=== PATIENT | male | born 1940 | race Caucasian/White ===

== ENCOUNTER 2023-10-19 21:53 | Emergency (ER) | payer MEDICARE, SELFPAY ==
[2023-10-19] VITALS (10 sets, daily range): BP systolic 92–120; BP diastolic 55–89; PULSE 69–95; RESP 11–20; TEMP 36.7; O2SAT 96–98; BMI 26.2
--- NOTE | 2023-10-19 22:55 | ECG_ITS ---
The [facility] Test Date: 2023-10-19 Pat Name: MAGDA ALEJO Department: Room: - Gender: Male [employer]: : 1940 Requested By: SUDHA CAMPBELL Order Number: [id number] Reading MD: STEVEN LUZ Measurements Intervals [place] Rate: 62 P: 70 GA: 178 QRS: 45 QRSD: 126 T: 21 QT: 428 QTc: 433 Interpretive Statements 1100 Sinus rhythm 1102 Sinus arrhythmia 3614 Cannot rule out inferior myocardial infarction, age undetermined [address] depression 4564 Twave abnormality, possible lateral ischemia 9150 abnormal ECG No previous ECG available for comparison Electronically Signed On 10-21-2023 19:55:07 EST by STEVEN LUZ
[2023-10-19] MEDS: 0.9 % SODIUM CHLORIDE 1,000 ML 1000 ML IV (23:08)
[2023-10-19] MEDS: ONDANSETRON PF 4 MG/2 ML VIAL IV (23:08)
[2023-10-19 23:16] LABS: Basophils Percent Auto 0.2 % (0.2-2.0); Hematocrit 49.5 % (42.0-54.0); Hemoglobin 16.1 g/dL (14.0-18.0); Immature Granulocytes Abs Auto 0.06 10^3/uL (0.00-0.03); Immature Granulocytes Pct Auto 0.4 % (0.0-0.5); Lymphocytes Absolute Auto 1.5 10^3/uL (1.2-3.8); Lymphocytes Percent Auto 10.1 % (20.5-60.0); Mean Corpuscular HGB Conc 32.5 g/dL (29.9-35.2); Mean Corpuscular Hemoglobin 30.3 pg (25.9-34.0); Mean Platelet Volume 11.7 fL (9.5-13.5); Monocytes Absolute Auto 0.7 10^3/uL (0.3-0.8); Monocytes Percent Auto 4.5 % (1.7-12.0); Neutrophils Absolute Auto 12.5 10^3/uL (1.4-6.5); Neutrophils Percent Auto 84.8 % (43.0-75.0); Platelet Count 185 10^3/uL (150-450); Red Blood Count 5.32 10^6/uL (4.70-6.10); Red Cell Distribution Width 13.1 % (11.0-15.0); White Blood Count 14.8 10^3/uL (4.0-11.0)
[2023-10-19 23:27] LABS: Ethanol <3 mg/dL
[2023-10-19 23:32] LABS: Alanine Aminotransferase 29 U/L (16-63); Alkaline Phosphatase 101 U/L (46-116); Anion Gap 12.9; Aspartate Amino Transferase 29 U/L (15-37); BUN Creatinine Ratio 16.3; Bilirubin Total 0.7 mg/dL (0.2-1.0); Calcium 10.3 mg/dL (8.5-10.1); Carbon Dioxide 29.7 mmol/L (21.0-32.0); Chloride 94 mmol/L (98-107); Estimated GFR (African America >60 (>=60); Estimated GFR (Non-African Ame >60 (>=60); Globulin 4.1 g/dL; Glucose 146 mg/dL (74-106); Potassium 3.6 mmol/L (3.5-5.1); Sodium 133 mmol/L (136-145); Total Protein 8.1 g/dL (6.4-8.2)
--- NOTE | 2023-10-19 23:35 | ED.NAVMDI1 ---
HPI - Nausea/Vomiting/Diarrhea General Chief complaint: Nausea/Vomiting/Diarrhea Stated complaint: general weakness Time Seen by Provider: 10/19/23 21:55 Source: patient Mode of arrival: Wheelchair Limitations: no limitations History of Present Illness HPI Narrative: 83-year-old male presents to the emergency department for a chief complaint of nausea and vomiting and feeling a bit weak. It started about 2:00 this afternoon, about nine hours ago. He vomited four times. No diarrhea or fever or hematemesis. No chest pain or cough or shortness of breath. Related Data Home Medications Medication Instructions Recorded Confirmed atorvastatin 80 mg tablet mg 10/19/23 brinzolamide 1 %-brimonidine 0.2 % drp ophthalmic (eye) 10/19/23 eye drops,suspension (Simbrinza) dorzolamide 2 % eye drops drp ophthalmic (eye) 10/19/23 dorzolamide 22.3 mg-timolol 6.8 ophthalmic (eye) 10/19/23 mg/mL eye drops latanoprost 0.005 % eye drops drp ophthalmic (eye) 10/19/23 verapamil 120 mg 24 hr mg PO 10/19/23 capsule,extended release Previous Rx's Medication Instructions Recorded ondansetron 4 mg disintegrating 4 mg PO Q6H PRN nausea and 10/20/23 tablet vomiting #20 tabs Allergies Allergy/AdvReac Type Severity Reaction Status Date / Time No Known Drug Allergies Allergy Verified 10/19/23 22:02 Review of Systems ROS Narrative A ten point review of systems is negative except as noted above. PFSH PFSH Social History Smoking status: Current every day smoker Exam Narrative Exam Narrative: Nurses note and vital signs reviewed and patient is not hypoxic. General: The patient appears well and in no apparent distress. Patient is resting comfortably on cart. Skin: Warm, dry, no pallor noted. There is no rash noted. Head: Normocephalic, atraumatic Eye: Normal conjunctiva, no drainage Ears, Nose, Mouth, and Throat: oral mucosa is moist. Nares patent. Cardiovascular: Regular Rate and Rhythm Respiratory: Patient is in no distress, no accessory muscle use, lungs are clear to auscultation, no wheezing, rales or rhonchi Back: non-tender GI: soft and nontender. Small umbilical hernia present which is easily reducible. Musculoskeletal: The patient has no evidence of calf tenderness, no pitting edema, symmetrical pulses noted bilaterally Neurological: A&O, normal speech Psychiatric: Cooperative Constitutional Vital Signs, click to edit/add: Last Vital Signs Temp 98.0 F 10/19/23 21:56 Pulse 95 H 10/19/23 23:40 Resp 20 10/19/23 23:40 BP 120/89 10/19/23 23:31 Pulse Ox 96 10/19/23 22:03 O2 Del Method Room Air 10/19/23 21:56 Course Vital Signs Vital signs: Vital Signs Temperature 98.0 F 10/19/23 21:56 Pulse Rate 69 10/19/23 21:56 Respiratory Rate 18 10/19/23 21:56 Blood Pressure 98/75 10/19/23 21:56 Pulse Oximetry 98 10/19/23 21:56 Oxygen Delivery Method Room Air 10/19/23 21:56 Temperature 98.0 F 10/19/23 21:56 Pulse Rate 95 H 10/19/23 23:40 Respiratory Rate 20 10/19/23 23:40 Blood Pressure 120/89 10/19/23 23:31 Pulse Oximetry 96 10/19/23 22:03 Oxygen Delivery Method Room Air 10/19/23 21:56 MDM - Nausea/Vomiting/Diarrhea MDM Narrative Medical decision making narrative: my clinical impression is that he has nausea and vomiting, likely from viral gastroenteritis. He was given IV fluids and Zofran and feels much better. He is tolerating by mouth liquids and wants to go home. Bloodwork nonspecific. Treatment diagnosis and follow-up were discussed with the patient. Differential Diagnosis Differential diagnosis: Likely food poisoning, gastroenteritis and dehydration Lab Data Attestation: I reviewed the patient's lab results. Labs: Lab Results 10/19/23 10/19/23 Range/Units 22:08 23:03 WBC 14.8 H (4.0-11.0) 10^3/uL RBC 5.32 (4.70-6.10) 10^6/uL Hgb 16.1 (14.0-18.0) g/dL Hct 49.5 (42.0-54.0) % MCV 93.0 (80.0-94.0) fL MCH 30.3 (25.9-34.0) pg MCHC 32.5 (29.9-35.2) g/dL RDW 13.1 (11.0-15.0) % Plt Count 185 (150-450) 10^3/uL MPV 11.7 (9.5-13.5) fL Neut % (Auto) 84.8 H (43.0-75.0) % Lymph % (Auto) 10.1 L (20.5-60.0) % [place] % (Auto) 4.5 (1.7-12.0) % Eos % (Auto) 0.0 L (0.9-7.0) % Baso % (Auto) 0.2 (0.2-2.0) % Neut # (Auto) 12.5 H (1.4-6.5) 10^3/uL Lymph # (Auto) 1.5 (1.2-3.8) 10^3/uL [place] # (Auto) 0.7 (0.3-0.8) 10^3/uL Eos # (Auto) 0.0 (0.0-0.7) 10^3/uL Baso # (Auto) 0.0 (0.0-0.1) 10^3/uL Abs Immat Gran (auto) 0.06 H (0.00-0.03) 10^3/uL Imm/Tot Granulo (auto) 0.4 (0.0-0.5) % Sodium 133 L (136-145) mmol/L Potassium 3.6 (3.5-5.1) mmol/L Chloride 94 L (98-107) mmol/L Carbon Dioxide 29.7 (21.0-32.0) mmol/L Anion Gap 12.9 BUN 17.0 (7.0-18.0) mg/dL Creatinine 1.04 (0.70-1.30) mg/dL Est GFR ( Amer) >60 (>=60) Est GFR (Non-Af Amer) >60 (>=60) BUN/Creatinine Ratio 16.3 Glucose 146 H (74-106) mg/dL Calcium 10.3 H (8.5-10.1) mg/dL Total Bilirubin 0.7 (0.2-1.0) mg/dL AST 29 (15-37) U/L ALT 29 (16-63) U/L Alkaline Phosphatase 101 (46-116) U/L Total Protein 8.1 (6.4-8.2) g/dL Albumin 4.0 (3.4-5.0) g/dL Globulin 4.1 g/dL Albumin/Globulin Ratio 1.0 Ethanol Quant <3 mg/dL ECG Data Attestation: I personally reviewed and interpreted this ECG as follows: (EKG on my interpretation shows sinus rhythm without acute change in a rate of 62.) Discharge Plan Discharge Chief Complaint: Nausea/Vomiting/Diarrhea Clinical Impression: Nausea & vomiting Patient Disposition: Home, Self-Care Time of Disposition Decision: 00:37 Condition: Good Mode of Transportation: Private Vehicle Prescriptions / Home Meds: New ondansetron 4 mg tablet,disintegrating 4 mg PO Q6H PRN (Reason: nausea and vomiting) Qty: 20 0RF No Action latanoprost 0.005 % drops OPHTHALMIC (EYE) atorvastatin 80 mg tablet dorzolamide-timolol 22.3-6.8 mg/mL drops OPHTHALMIC (EYE) dorzolamide 2 % drops OPHTHALMIC (EYE) verapamil 120 mg capsule,ext rel. pellets 24 hr PO Simbrinza 1-0.2 % drops,suspension OPHTHALMIC (EYE) Instructions: Acute Nausea and Vomiting (ED) Stand Alone Forms: Portal Instructions Referrals: SUDHA CAMPBELL [Primary Care Provider] - 1 week
[2023-10-20] VITALS (7 sets, daily range): BP systolic 84–115; BP diastolic 62–84; PULSE 83–95; RESP 14–19
== END 2023-10-20 01:09 | disposition home or self-care (01) ==
PROVIDERS: Emergency Provider Emergency Medicine; PCP Family Medicine
DX: R11.2 Nausea with vomiting, unspecified (principal); Z79.899 Other long term (current) drug therapy; F17.210 Nicotine dependence, cigarettes, uncomplicated
CPT/HCPCS: 36415; 80053; 80320; 85025; 93005; 96361; 96374; 99285

== ENCOUNTER 2023-10-21 14:00 | Inpatient (IN) | payer MEDICARE, SELFPAY ==
[2023-10-21] VITALS (17 sets, daily range): BP systolic 84–118; BP diastolic 50–87; PULSE 75–88; RESP 13–20; TEMP 36.7–36.9; O2SAT 81–100; BMI 26.5; BMI 24.0
--- NOTE | 2023-10-21 | CONS_ITS ---
CONSULTATION DATE: ??10/21/2023 CHIEF COMPLAINT:? Abdominal pain, nausea, vomiting. HISTORY OF PRESENT ILLNESS:? Patient is an 83-year-old male with history of COPD, hypertension, hyperlipidemia, peripheral vascular disease, who presented to the emergency room with mid abdominal pain as well as nausea and vomiting.? He reports that this began on Sunday.? He was unable to keep anything down since Sunday night.? He does have a history of significant coughing episodes through his COPD.? He presented to the emergency room Sunday, two days ago, and was diagnosed with gastroenteritis and sent back home.? His symptoms worsened and persisted, I guess, and he represented today.? This time, he was found to have evidence of dehydration.? CT scan of the abdomen and pelvis was performed which revealed an incarcerated loop of small bowel within a small umbilical hernia with a small bowel obstruction.? He was also found to have some hypoxia and mild hypotension.? He underwent CTA of the chest that was negative for pulmonary embolus.? He was also being evaluated for infections.? Patient denies any history of bowel obstructions or incarcerated hernias.? He does report that he noted the hernia about six months ago.? It has been relatively asymptomatic.? He denies any blood thinners.? Does take a baby aspirin daily.? No nonsteroidal anti-inflammatory drugs.? He denies any previous abdominal surgeries.? He does smoke less than a pack a day, which he has for many years.? ALLERGIES:? Patient has no known drug allergies.?? MEDICATIONS:? Home medications include a baby aspirin, atorvastatin, multiple eye drops, as well as verapamil daily. PAST SURGICAL HISTORY:? Significant for carotid endarterectomies. SOCIAL HISTORY:? Patient is a , does smoke less than a pack a day, reports occasional alcohol use, no illicit drug us. FAMILY HISTORY:? Noncontributory. REVIEW OF SYSTEMS:? Ten system review of systems is negative for recent weight loss or weight gain.? Denies increased fatigue or light-headedness.? Has had no earache or tinnitus.? No sinus congestion.? No sore throat or hoarseness.? No chest pain, palpitations or syncope.? Does have a chronic cough and shortness of breath.? No hemoptysis.? Has had the abdominal pain, nausea, vomiting since Sunday.? No diarrhea, constipation or decreased caliber of the stool.? No melena, hematochezia or bright red blood per rectum.? No dysuria, frequency, urgency or hematuria.? No headaches, seizures or tremors.? No easy bruising or bleeding.? No heat or cold intolerance.? No polydipsia, polyphagia or polyuria. PHYSICAL EXAM:? VITAL SIGNS:? Blood pressure is 90s/60s.? Heart rate is 76 and regular.? Respiratory rate is 18.? O2 saturation is 97% on nasal cannula O2.? GENERAL:? Patient is an elderly male, currently in no acute distress.? He is on oxygen with an O2 saturation in the mid 90s. HEENT:? Normocephalic, atraumatic.? Sclerae anicteric.? Conjunctiva are not injected.? Oral mucosa is slightly dry. NECK:? Supple.? No adenopathy, thyromegaly or JVD. LUNGS:? Reveal expiratory wheezes, decreased breath sounds at the bases.? CARDIAC EXAM:? Regular rhythm and rate without appreciable murmurs, rubs or gallops. ABDOMEN:? Soft.? There are hypoactive bowel sounds.? It is non-distended.? There is tenderness in the umbilicus with slight ecchymotic change to the umbilicus with small umbilical bulge on palpation.? This is tender.? It was able to be reduced with moderate pressure and the defect was noted to be less than 1 cm.? Abdomen is otherwise soft, non-tender, non-distended, without mass, hepatosplenomegaly or other hernias noted. SKIN:? Warm and dry without lesions, rashes or ulcers. NEURO EXAM:? Non-focal.? Non-lateralizing.? Patient is awake, alert, oriented with appropriate affect. LABORATORY VALUES:? Reveal an elevated white blood cell count of 13,400.? H&H is 16.3 and 49.9 with a normal platelet count.? Coagulation factors are normal.? D- dimer was slightly elevated.? Potassium is low at 3.2.? Carbon dioxide is elevated at 35. BUN is 29 with a creatinine of 1.44.? Glucose is elevated at 121.? Liver function tests are normal.? Urinalysis revealed concentrated urine. IMAGING:? CT scan was personally reviewed. ASSESSMENT:? An 83-year-old male with COPD, with a four day history of nausea, vomiting, abdominal pain, likely due to incarcerated umbilical hernia.? This was reduced and he has a less than 1 cm defect.? I would recommend placing an abdominal binder on the patient.? Continue with hydration.? Workup for possible other sources of infection, although I believe, most likely all his symptoms are due to nausea, vomiting, dehydration and his underlying COPD.? Once he is medically stable, the hernia should be repaired during this admission to prevent further episodes of incarceration. ?Likely he could benefit from just a primary repair with such a small defect.? I would begin him on a clear liquid diet and gradually advance to a regular diet as tolerated.? I will follow him with you during his hospital course. CC:? Ben Chaidez D.O. PEDRO LUIS
--- NOTE | 2023-10-21 14:58 | ECG_ITS ---
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
--- NOTE | 2023-10-21 14:59 | CT_ITS ---
[address] [address] Patient Name: MAGDA ALEJO MRN: [id number] date: 1940 Sex: M Assigned Patient Location: ER Current Patient Location: ER Accession/Order Number: [id number] Exam Date: 10/21/2023 15:23 Report Date: 10/21/2023 15:58 At the request of: VERENICE DILLON Procedure: CT abdomen pelvis wo con CT ABDOMEN/PELVIS WITHOUT IV CONTRAST. INDICATION: abd pain and sbo COMPARISON: There are no other studies available for comparison. TECHNIQUE: Contiguous axial images were obtained from the lung bases to the pelvic floor without intravenous or oral contrast. Coronal and sagittal reformations are provided. FINDINGS: LOWER LUNGS: Clear. LIVER/BILIARY TREE: No discrete lesion. No intrahepatic ductal dilatation. GALLBLADDER: No significant gallbladder wall thickening. No radiopaque stone. CBD: Normal CBD. SPLEEN: Normal in size. PANCREAS: No appreciable peripancreatic fluid. No pancreatic ductal dilatation. No discrete lesion. ADRENALS: Normal. KIDNEYS: No hydronephrosis. No radiopaque calculus. STOMACH AND BOWEL: There are dilated small bowel loops measuring up to 3.8 cm.. . There is transitioning at the umbilical hernia which contains a small bowel loop. No evidence of perforation. APPENDIX: Not visualized. PERITONEAL CAVITY: No fluid. No fat stranding. ABDOMINAL WALL: There is a small umbilical hernia containing a small bowel loop resulting in bowel obstruction. The hernia sac measures approximately 2.7 x 3.1 cm. The hernia neck measures approximately 1 cm. LYMPH NODES: No mesenteric or retroperitoneal lymphadenopathy by CT criteria. ABDOMINAL AORTA: There is a 3.1 cm infrarenal abdominal aortic aneurysm.. PELVIS: No acute abnormality. MUSCULOSKELETAL: No acute osseous abnormality. CT/CT abdomen pelvis wo con IMPRESSION: 1. Small umbilical hernia containing a small bowel loop resulting in a small bowel obstruction. No evidence of perforation. Correlate for incarcerated umbilical hernia. 2. 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 Electronically authenticated by: ANTONIO MENDOZA Date: 10/21/2023 15:58
--- NOTE | 2023-10-21 14:59 | XR_ITS ---
The [place] [id number] Patient Name: MAGDA ALEJO MRN: [id number] date: 1940 Sex: M Assigned Patient Location: ER Current Patient Location: ER Accession/Order Number: [id number] Exam Date: 10/21/2023 15:20 Report Date: 10/21/2023 15:59 At the request of: VERENICE DILLON Procedure: XR chest 1V EXAM: XR chest 1V , 10/21/2023 HISTORY: sob COMPARISON: None. TECHNIQUE: Portable AP upright x-ray of the chest. FINDINGS: Cardiac silhouette within normal limits. Atherosclerotic calcification of the thoracic aorta. Minimal basilar atelectasis, more so on the left side. No hilar or mediastinal enlargement. No focal consolidation or pulmonary edema. No acute osseous findings. XR/XR chest 1V IMPRESSION: No acute cardiopulmonary findings. Electronically authenticated by: CHANO HUFF Date: 10/21/2023 15:59
[2023-10-21] MEDS: 0.9 % SODIUM CHLORIDE 1,000 ML 1000 ML IV (15:07)
[2023-10-21] MEDS: FAMOTIDINE/PF 20 MG/2 ML VIAL IV (15:07)
[2023-10-21 15:23] LABS: Basophils Percent Auto 0.1 % (0.2-2.0); Eosinophils Percent Auto 0.1 % (0.9-7.0); Hematocrit 49.9 % (42.0-54.0); Hemoglobin 16.3 g/dL (14.0-18.0); Immature Granulocytes Abs Auto 0.05 10^3/uL (0.00-0.03); Immature Granulocytes Pct Auto 0.4 % (0.0-0.5); Lymphocytes Absolute Auto 1.7 10^3/uL (1.2-3.8); Lymphocytes Percent Auto 12.6 % (20.5-60.0); Mean Corpuscular HGB Conc 32.7 g/dL (29.9-35.2); Mean Corpuscular Hemoglobin 30.3 pg (25.9-34.0); Mean Corpuscular Volume 92.8 fL (80.0-94.0); Mean Platelet Volume 11.4 fL (9.5-13.5); Monocytes Absolute Auto 1.2 10^3/uL (0.3-0.8); Monocytes Percent Auto 8.8 % (1.7-12.0); Neutrophils Absolute Auto 10.4 10^3/uL (1.4-6.5); Platelet Count 193 10^3/uL (150-450); Red Blood Count 5.38 10^6/uL (4.70-6.10); Red Cell Distribution Width 13.2 % (11.0-15.0); White Blood Count 13.4 10^3/uL (4.0-11.0)
[2023-10-21 15:32] LABS: Magnesium 2.1 mg/dL (1.8-2.4)
[2023-10-21 15:36] LABS: INR 1.02; Prothrombin Time 10.8 sec (9.0-11.6)
[2023-10-21 15:41] LABS: Alanine Aminotransferase 29 U/L (16-63); Alkaline Phosphatase 98 U/L (46-116); Anion Gap 13.1; Aspartate Amino Transferase 27 U/L (15-37); BUN Creatinine Ratio 20.1; Bilirubin Total 0.7 mg/dL (0.2-1.0); Calcium 10.8 mg/dL (8.5-10.1); Carbon Dioxide 35.1 mmol/L (21.0-32.0); Chloride 91 mmol/L (98-107); Estimated GFR (African America 57 (>=60); Estimated GFR (Non-African Ame 47 (>=60); Globulin 4.2 g/dL; Glucose 121 mg/dL (74-106); Lactate/Lactic Acid 1.7 mmol/L (0.4-2.0); Potassium 3.2 mmol/L (3.5-5.1); Sodium 136 mmol/L (136-145); Total Protein 8.2 g/dL (6.4-8.2); Troponin I High Sensitivity 60.6 pg/mL (4.0-76.1)
[2023-10-21 15:49] LABS: Bilirubin Urine SMALL (NEGATIVE); Blood Urine NEGATIVE (NEGATIVE); Clarity Urine CLEAR (CLEAR); Color Urine YELLOW (YELLOW); Glucose Urine UA NEGATIVE (NEGATIVE); Ketones Urine NEGATIVE (NEGATIVE); Leukocyte Esterase Urine NEGATIVE (NEGATIVE); Nitrite Urine NEGATIVE (NEGATIVE); Protein Urine 30 mg/dL (NEG/TRACE); Specific Gravity Urine >=1.030 (1.005-1.025); Urine Microscopic Indicated YES; pH Urine 5.5 (5.0-9.0)
[2023-10-21 15:59] LABS: D Dimer 2.03 mg/L FEU (<=0.59)
[2023-10-21 16:01] LABS: RBC Urine 0-2 #/HPF (0-2); WBC Urine NONE SEEN #/HPF (NONE SEEN)
[2023-10-21 16:02] LABS: Bacteria Urine TRACE #/HPF (NONE SEEN); Cast Seen? SEEN #/LPF (NONE SEEN); Crystals Seen? None Seen #/HPF (None Seen); Hyaline Casts Urine MODERATE; Mucus Urine SMALL (NONE SEEN); Squamous Epithelial Cell Urine FEW #/LPF (NONE/RARE); Urine Culture Indicated NO
--- NOTE | 2023-10-21 17:26 | CT_ITS ---
The [address] [address] Patient Name: MAGDA ALEJO MRN: [id number] date: 1940 Sex: M Assigned Patient Location: ER Current Patient Location: ER Accession/Order Number: [id number] Exam Date: 10/21/2023 17:18 Report Date: 10/21/2023 18:25 At the request of: VERENICE DILLON Procedure: CT angio chest EXAMINATION: CT angio chest, 10/21/2023 2:18 PM PST HISTORY: sob elevated ddimer COMPARISON: None. TECHNIQUE: CT angiogram of the chest (per pulmonary embolus protocol) with contrast. Coronal and sagittal 3D MIP rendered images were created. ALARA Utilization: Dose reduction technique was used including one or more of the following: automated exposure control, iterative reconstruction technique, adjustment of mA and kV according patient size and/or scan done according to ALARA (exposure dose as low as reasonably achievable). FINDINGS: CTA: No pulmonary artery filling defects/emboli. Non dilated pulmonary trunk. LUNGS: Peribronchial thickening and scattered distal mucus plugging. Mild subpleural reticulation. AIRWAYS: Central airways are patent. PLEURA: As above. No pleural effusion. MEDIASTINUM AND ELISE: No significant finding. HEART AND PERICARDIUM: No significant finding. VESSELS: Heavy coronary calcification. Additional findings above. CHEST WALL: No significant finding. NECK BASE: No significant finding. UPPER ABDOMEN: Distended stomach and small bowel loops, partially visualized. Small bowel obstruction secondary to umbilical hernia noted on CT abdomen. BONES: No significant finding. CT/CT angio chest IMPRESSION: No evidence of pulmonary emboli. Peribronchial thickening and scattered distal airway mucus plugging. Electronically authenticated by: DAMIAN SHI Date: 10/21/2023 18:25
--- NOTE | 2023-10-21 17:49 | ED_ITS ---
HPI - Abdominal Pain General Chief Complaint: Abdominal Pain Stated Complaint: nausea/ general weakness Time Seen by Provider: 10/21/23 14:58 Source: patient and family Mode of arrival: walk-in Limitations: no limitations History of Present Illness HPI narrative: Patient is coming to the ER after he was evaluated almost few days ago for possibly a viral infection with nausea vomiting and not tolerating any p.o. for the last 3 days in addition to his last bowel movement being 4 days ago When asked about abdominal pain the patient mentioned that mostly right upper quadrant he also mentioned that he have a history of umbilical hernia that is always tender The patient mentioned that the hernia is not bulging more than usual It was also noted that the patient is weak tired and coughing with difficulty breathing upon arrival Related Data Home Medications Medication Instructions Recorded Confirmed atorvastatin 80 mg tablet 80 mg PO DAILY 10/19/23 10/21/23 brinzolamide 1 %-brimonidine 0.2 % 1 drp ophthalmic (eye) Q12H 10/19/23 10/21/23 eye drops,suspension (Simbrinza) dorzolamide 2 % eye drops 1 drp ophthalmic (eye) Q12H 10/19/23 10/21/23 dorzolamide 22.3 mg-timolol 6.8 1 drp ophthalmic (eye) Q12H 10/19/23 10/21/23 mg/mL eye drops latanoprost 0.005 % eye drops 1 drp ophthalmic (eye) Q12H 10/19/23 10/21/23 verapamil 120 mg 24 hr 120 mg PO DAILY 10/19/23 10/21/23 capsule,extended release aspirin 81 mg chewable tablet 81 mg PO DAILY 10/21/23 10/21/23 (Jose Chewable Low Dose Aspirin) Previous Rx's Medication Instructions Recorded ondansetron 4 mg disintegrating 4 mg PO Q6H PRN nausea and 10/20/23 tablet vomiting #20 tabs Allergies Allergy/AdvReac Type Severity Reaction Status Date / Time No Known Drug Allergies Allergy Verified 10/19/23 22:02 Review of Systems ROS Status of ROS 10 or more systems reviewed and unremarkable except as noted in history and below PFSH PFSH Social History Smoking status: Current every day smoker Exam Narrative Exam Narrative: Nurses notes and vital signs reviewed and patient is not hypoxic. General: Well-appearing and in no apparent distress. Skin: Warm, dry, no pallor noted. No rash. Head: Normocephalic, atraumatic. Neck: Supple, non-tender. 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 Oral mucosa is moist, no posterior oropharynx erythema, uvula is mid-line Cardiovascular: Regular Rate and Rhythm without murmur, gallop or rub. Respiratory: Rhonchi heard in both lung witt Lungs are clear to auscultation, no wheezing, rales or rhonchi Chest Wall: no tenderness Back: No midline thoracic or lumbar vertebral tenderness. No CVA tenderness Musculoskeletal: normal ROM, no calf or popliteal tenderness, no lower extremity edema/swelling GI: Abdomen is soft, mild tenderness upon palpation of the umbilical hernia that is almost 2 x 3 cm oval in shape with 1 cm thickness and upon putting the patient in the room breathing and pushing on the hernia it was soft No tenderness to palpation. No rebound, guarding, or rigidity noted. Neurological: A&O x4. No cranial nerve dysfunction observed. No truncal ataxia. Moves all extremities. Sensation intact. Psychiatric: Cooperative and interactive. Normal mood and affect. Constitutional Vital Signs, click to edit/add: Last Vital Signs Temp 98.4 F 10/21/23 14:11 Pulse 76 10/21/23 15:24 Resp 20 10/21/23 17:10 BP 91/66 10/21/23 15:24 Pulse Ox 97 10/21/23 17:10 O2 Del Method Room Air 10/21/23 15:46 O2 Flow Rate 4 10/21/23 15:24 Course Vital Signs Vital signs: Vital Signs Temperature 98.4 F 10/21/23 14:11 Pulse Rate 82 10/21/23 14:11 Respiratory Rate 18 10/21/23 14:11 Blood Pressure 84/50 L 10/21/23 14:11 Pulse Oximetry 93 L 10/21/23 14:11 Oxygen Delivery Method Room Air 10/21/23 14:11 Temperature 98.4 F 10/21/23 14:11 Pulse Rate 76 10/21/23 15:24 Respiratory Rate 20 10/21/23 17:10 Blood Pressure 91/66 10/21/23 15:24 Pulse Oximetry 97 10/21/23 17:10 Oxygen Delivery Method Room Air 10/21/23 15:46 Oxygen Delivery Flow Rate 4 10/21/23 15:24 MDM - Abdominal Pain MDM Narrative Medical decision making narrative: The patient EKG upon presentation showing sinus rhythm with a heart rate of [address] elevation or depression but there is chronic T wave inversion seen in other EKGs CBC shows a mild leukocytosis Chemistry shows mild acute kidney injury upon presentation it was noted that the patient was hypotensive in addition to short of breath with a pulse ox 85% on room air and the systolic pressure was around 80 upon arrival The patient was started IV fluid 1 L after which she had some response and blood pressure is lactic acid was 1.7 CAT scan of the abdomen shows possible small bowel obstruction with a hernia at the transition point although the patient as I mentioned above have a no significant bulge of the hernia and upon pushing on the hernia it was soft although it still very indurated The patient case about the hernia discussed with Dr. Venegas and the the patient right now is pain-free and have no nausea or vomiting he will be admitted after cover him with antibiotic for that issue The patient CAT scan of the chest showed no PE the patient to be admitted for management of his hernia Dr. Venegas presented to the bedside and he reduce the hernia but he will take the patient mostly for surgery if needed The patient case discussed with Dr. Vanessa Burch and she agreed with above-mentioned plan Lab Data Labs: Lab Results 10/21/23 10/21/23 10/21/23 Range/Units 13:10 15:10 15:42 WBC 13.4 H (4.0-11.0) 10^3/uL RBC 5.38 (4.70-6.10) 10^6/uL Hgb 16.3 (14.0-18.0) g/dL Hct 49.9 (42.0-54.0) % MCV 92.8 (80.0-94.0) fL MCH 30.3 (25.9-34.0) pg MCHC 32.7 (29.9-35.2) g/dL RDW 13.2 (11.0-15.0) % Plt Count 193 (150-450) 10^3/uL MPV 11.4 (9.5-13.5) fL Neut % (Auto) 78.0 H (43.0-75.0) % Lymph % (Auto) 12.6 L (20.5-60.0) % [place] % (Auto) 8.8 (1.7-12.0) % Eos % (Auto) 0.1 L (0.9-7.0) % Baso % (Auto) 0.1 L (0.2-2.0) % Neut # (Auto) 10.4 H (1.4-6.5) 10^3/uL Lymph # (Auto) 1.7 (1.2-3.8) 10^3/uL [place] # (Auto) 1.2 H (0.3-0.8) 10^3/uL Eos # (Auto) 0.0 (0.0-0.7) 10^3/uL Baso # (Auto) 0.0 (0.0-0.1) 10^3/uL Abs Immat Gran (auto) 0.05 H (0.00-0.03) 10^3/uL Imm/Tot Granulo (auto) 0.4 (0.0-0.5) % PT 10.8 (9.0-11.6) sec INR 1.02 D-Dimer 2.03 H* (<=0.59) mg/L FEU Sodium 136 (136-145) mmol/L Potassium 3.2 L (3.5-5.1) mmol/L Chloride 91 L (98-107) mmol/L Carbon Dioxide 35.1 H (21.0-32.0) mmol/L Anion Gap 13.1 BUN 29.0 H (7.0-18.0) mg/dL Creatinine 1.44 H (0.70-1.30) mg/dL Est GFR ( Amer) 57 L (>=60) Est GFR (Non-Af Amer) 47 L (>=60) BUN/Creatinine Ratio 20.1 Glucose 121 H (74-106) mg/dL Lactate 1.7 (0.4-2.0) mmol/L Calcium 10.8 H (8.5-10.1) mg/dL Magnesium 2.1 (1.8-2.4) mg/dL Total Bilirubin 0.7 (0.2-1.0) mg/dL AST 27 (15-37) U/L ALT 29 (16-63) U/L Alkaline Phosphatase 98 (46-116) U/L Troponin I High Sens 60.6 (4.0-76.1) pg/mL Total Protein 8.2 (6.4-8.2) g/dL Albumin 4.0 (3.4-5.0) g/dL Globulin 4.2 g/dL Albumin/Globulin Ratio 1.0 Urine Color Yellow (YELLOW) Urine Clarity Clear (CLEAR) Urine pH 5.5 (5.0-9.0) Ur Specific [place] >=1.030 A (1.005-1.025) Urine Protein 30 A (NEG/TRACE) mg/dL Urine Glucose (UA) Negative (NEGATIVE) mg/dL Urine Ketones Negative (NEGATIVE) mg/dL Urine Occult Blood Negative (NEGATIVE) Urine Nitrite Negative (NEGATIVE) Urine Bilirubin Small A (NEGATIVE) Urine Urobilinogen 1.0 (0.2-1.0) EU/dL Ur Leukocyte Esterase Negative (NEGATIVE) Urine RBC 0-2 (0-2) #/HPF Urine WBC None seen (NONE SEEN) #/HPF Ur Squamous Epith Cells Few A (NONE/RARE) #/LPF Urine Crystals None seen (None Seen) #/HPF Urine Bacteria Trace A (NONE SEEN) #/HPF Urine Casts Seen A (NONE SEEN) #/LPF Hyaline Casts Moderate Urine Mucus Small A (NONE SEEN) Ur Culture Indicated? No Discharge Plan Discharge Chief Complaint: Abdominal Pain Clinical Impression: Hernia, umbilical, Acute exacerbation of chronic obstructive pulmonary disease Patient Disposition: Admitted As Inpatient Time of Disposition Decision: 19:01
[2023-10-21] MEDS: CEFAZOLIN SODIUM/DEXTROSE,ISO 1 GM/50 ML IV.SOLN IV (18:47)
--- NOTE | 2023-10-21 18:58 | P.GSCN_ITS ---
History of Present Illness Consult details Consult date: 10/21/23 Narrative: patient examined/ chart and abd ct scan images reviewed/consult dictated; 83 yo male with COPD with 4 day h/o N/V mid abd pain, found to have incarcerated umbilical hernia with sbo; hernia reduced by me in the ED; recommend admission, hydration, medical optimization, and proceeding with primary repair of hernia during this admission to prevent recurrence; recommend abd binder now to minimize recurrence; will follow. PFSH PFSH Social History Smoking status: Current every day smoker Meds Home Medications and Allergies Home Medications Medication Instructions Recorded Confirmed Type atorvastatin 80 mg tablet 80 mg PO DAILY 10/19/23 10/21/23 History brinzolamide 1 %-brimonidine 0.2 % 1 drp ophthalmic (eye) Q12H 10/19/23 10/21/23 History eye drops,suspension (Simbrinza) dorzolamide 2 % eye drops 1 drp ophthalmic (eye) Q12H 10/19/23 10/21/23 History dorzolamide 22.3 mg-timolol 6.8 1 drp ophthalmic (eye) Q12H 10/19/23 10/21/23 History mg/mL eye drops latanoprost 0.005 % eye drops 1 drp ophthalmic (eye) Q12H 10/19/23 10/21/23 History verapamil 120 mg 24 hr 120 mg PO DAILY 10/19/23 10/21/23 History capsule,extended release ondansetron 4 mg disintegrating 4 mg PO Q6H PRN nausea and 10/20/23 10/21/23 Rx tablet vomiting #20 tabs aspirin 81 mg chewable tablet 81 mg PO DAILY 10/21/23 10/21/23 History (Jose Chewable Low Dose Aspirin) Allergies Allergy/AdvReac Type Severity Reaction Status Date / Time No Known Drug Allergies Allergy Verified 10/19/23 22:02 Exam Constitutional Vital Signs, click to edit/add: Last Vital Signs Temp 98.4 F 10/21/23 14:11 Pulse 76 10/21/23 15:24 Resp 20 10/21/23 17:10 BP 91/66 10/21/23 15:24 Pulse Ox 97 10/21/23 17:10 O2 Del Method Room Air 10/21/23 15:46 O2 Flow Rate 4 10/21/23 15:24 Results Labs Labs: Abnormal lab results 10/21/23 10/21/23 10/21/23 Range/Units 13:10 15:10 15:42 WBC 13.4 H (4.0-11.0) 10^3/uL Neut % (Auto) 78.0 H (43.0-75.0) % Lymph % (Auto) 12.6 L (20.5-60.0) % Eos % (Auto) 0.1 L (0.9-7.0) % Baso % (Auto) 0.1 L (0.2-2.0) % Neut # (Auto) 10.4 H (1.4-6.5) 10^3/uL [place] # (Auto) 1.2 H (0.3-0.8) 10^3/uL Abs Immat Gran (auto) 0.05 H (0.00-0.03) 10^3/uL D-Dimer 2.03 H* (<=0.59) mg/L FEU Potassium 3.2 L (3.5-5.1) mmol/L Chloride 91 L (98-107) mmol/L Carbon Dioxide 35.1 H (21.0-32.0) mmol/L BUN 29.0 H (7.0-18.0) mg/dL Creatinine 1.44 H (0.70-1.30) mg/dL Est GFR ( Amer) 57 L (>=60) Est GFR (Non-Af Amer) 47 L (>=60) Glucose 121 H (74-106) mg/dL Calcium 10.8 H (8.5-10.1) mg/dL Ur Specific [place] >=1.030 A (1.005-1.025) Urine Protein 30 A (NEG/TRACE) mg/dL Urine Bilirubin Small A (NEGATIVE) Ur Squamous Epith Cells Few A (NONE/RARE) #/LPF Urine Bacteria Trace A (NONE SEEN) #/HPF Urine Casts Seen A (NONE SEEN) #/LPF Urine Mucus Small A (NONE SEEN) Diabetes panel 10/21/23 Range/Units 15:10 Sodium 136 (136-145) mmol/L Potassium 3.2 L (3.5-5.1) mmol/L Chloride 91 L (98-107) mmol/L Carbon Dioxide 35.1 H (21.0-32.0) mmol/L BUN 29.0 H (7.0-18.0) mg/dL Creatinine 1.44 H (0.70-1.30) mg/dL Glucose 121 H (74-106) mg/dL Calcium 10.8 H (8.5-10.1) mg/dL AST 27 (15-37) U/L ALT 29 (16-63) U/L Alkaline Phosphatase 98 (46-116) U/L Total Protein 8.2 (6.4-8.2) g/dL Albumin 4.0 (3.4-5.0) g/dL Calcium panel 10/21/23 Range/Units 15:10 Calcium 10.8 H (8.5-10.1) mg/dL Albumin 4.0 (3.4-5.0) g/dL Pituitary panel 10/21/23 Range/Units 15:10 Sodium 136 (136-145) mmol/L Potassium 3.2 L (3.5-5.1) mmol/L Chloride 91 L (98-107) mmol/L Carbon Dioxide 35.1 H (21.0-32.0) mmol/L BUN 29.0 H (7.0-18.0) mg/dL Creatinine 1.44 H (0.70-1.30) mg/dL Glucose 121 H (74-106) mg/dL Calcium 10.8 H (8.5-10.1) mg/dL Adrenal panel 10/21/23 Range/Units 15:10 Sodium 136 (136-145) mmol/L Potassium 3.2 L (3.5-5.1) mmol/L Chloride 91 L (98-107) mmol/L Carbon Dioxide 35.1 H (21.0-32.0) mmol/L BUN 29.0 H (7.0-18.0) mg/dL Creatinine 1.44 H (0.70-1.30) mg/dL Glucose 121 H (74-106) mg/dL Calcium 10.8 H (8.5-10.1) mg/dL Total Bilirubin 0.7 (0.2-1.0) mg/dL AST 27 (15-37) U/L ALT 29 (16-63) U/L Alkaline Phosphatase 98 (46-116) U/L Total Protein 8.2 (6.4-8.2) g/dL Albumin 4.0 (3.4-5.0) g/dL All other labs normal.
--- NOTE | 2023-10-21 19:35 | PC.NURSE ---
Abdominal binder placed. Aware of transfer to floor.
[2023-10-22] VITALS (10 sets, daily range): BP systolic 90–122; BP diastolic 60–81; PULSE 65–82; RESP 20–22; TEMP 36.6–36.7; O2SAT 85–94
--- NOTE | 2023-10-22 01:55 | W.PM.TELEPN ---
Progress Note: Subjective Subjective Interval history: The patient is an 83-year-old male with history of hypertension and COPD, who came to the ED 3 days ago for increasing shortness of breath, he continued to progress and today was noted to have oxygen saturations of 88%. He has had green productive phlegm and also has had some fevers and chills. He is he was exposed to his grandson who was not feeling well several days ago. The patient has been vaccinated for COVID and flu. He was thought to have a COPD exacerbation and was given IV Solu-Medrol in the ED. Of note the patient did develop sudden onset of abdominal pain. He was diagnosed with a small bowel obstruction due to an umbilical hernia. General surgery evaluated him in the ED and the hernia was reduced. An abdominal binder was placed. Since then, the patient has had 2 bowel movements and feels more comfortable. He is being admitted for further evaluation. Exam Narrative Exam Narrative: General : Alert and oriented x3 HEENT : Extraocular movements intact, pupils equal round and reactive to light and accommodation Neck: Supple, no JVD Chest: Few scattered expiratory wheezes Heart: Regular rate and rhythm, S1 and S2 heard Abdomen: Soft nontender nondistended. Binder in place Extremities: No clubbing cyanosis or edema Neurologically: Moving all 4 extremities Skin: No rashes Constitutional Vital Signs, click to edit/add: Last Vital Signs Temp 98.1 F 10/22/23 01:49 Pulse 76 10/22/23 01:49 Resp 20 10/22/23 01:49 BP 94/67 10/22/23 01:49 Pulse Ox 91 L 10/22/23 01:49 O2 Del Method Nasal Cannula 10/22/23 01:49 O2 Flow Rate 1 10/22/23 01:49 Progress Note: Objective Labs Labs: Short CBC 10/21/23 Range/Units 15:10 WBC 13.4 H (4.0-11.0) 10^3/uL Hgb 16.3 (14.0-18.0) g/dL Hct 49.9 (42.0-54.0) % Plt Count 193 (150-450) 10^3/uL BMP 10/21/23 15:10 Sodium 136 Potassium 3.2 L Chloride 91 L Carbon Dioxide 35.1 H BUN 29.0 H Creatinine 1.44 H Glucose 121 H Calcium 10.8 H Liver Function 10/21/23 Range/Units 15:10 Total Bilirubin 0.7 (0.2-1.0) mg/dL AST 27 (15-37) U/L ALT 29 (16-63) U/L Alkaline Phosphatase 98 (46-116) U/L Albumin 4.0 (3.4-5.0) g/dL Urine 10/21/23 Range/Units 15:42 Urine Color Yellow (YELLOW) Urine Clarity Clear (CLEAR) Urine pH 5.5 (5.0-9.0) Ur Specific [place] >=1.030 A (1.005-1.025) Urine Protein 30 A (NEG/TRACE) mg/dL Urine Glucose (UA) Negative (NEGATIVE) mg/dL Progress Note: A&P Assessment and Plan (1) Hernia, umbilical: (2) Acute exacerbation of chronic obstructive pulmonary disease: (3) SBO (small bowel obstruction): Plan The patient is an 83-year-old male with above medical problems, presenting with COPD exacerbation. COPD exacerbation -Provide supportive care -IV steroids, Mucinex, Flonase, nebulizers -Empiric antibiotics with Rocephin and azithromycin Small bowel obstruction -Secondary to incarcerated umbilical hernia -Reduced by general surgery -Abdominal binder in place -Patient denies any pain or discomfort at this time -Keep npo for now but if improved, can possibly advance diet if surgery is not being considered Nicotine dependence -Provide nicotine patch Hypertension -Continue verapamil DVT Prophylaxis -Lovenox, SCDs Medication review -Medication reconciliation form completed Goals of care -DNR [employer] -Discussed with the emergency room physician -Discussed with the bedside nurse -Patient updated of plan of care, all questions answered to their satisfaction Disposition -PT evaluation for weakness - Home when medically stable Telemedicine clause -As the provider of this telehealth evaluation, requested by the patient's evaluating physician, I attest that I introduced myself to the patient, provided my credentials and determined that telemedicine via a real-time, two-way interactive audio and video platform is an appropriate and effective means of providing this service. -I reviewed the patient's chart and had a discussion with the member of the patient's treatment team. -The patient and I mutually agreed with continuation of this evaluation via telemedicine. The patient consented for the telemedicine evaluation. -This virtual encounter was taken place from [place], [place]. The encounter was approximately 35 minutes. The nurse was present during the entire time of the encounter and was able to remove the stethoscope and appropriate directions. The patient was evaluated at [facility] Telemedicine Attestation Telemedicine Attestation I conducted this encounter from [] via secure live, [id number] video conference with the patient, located at [facility] with []. Prior to the interview, the risks and benefits of telemedicine were discussed with the patient and verbal consent was obtained.
[2023-10-22] MEDS: DEXTROSE 5 %-0.45 % SOD CHLORD 1,000 ML 75 ML IV ×2 (03:03→23:11)
[2023-10-22] MEDS: GUAIFENESIN 600 MG TAB.ER.12H PO ×2 (03:03→20:19)
[2023-10-22] MEDS: METHYLPREDNISOLONE SOD SUCC PF 40 MG/ML VIAL IVP ×2 (03:03→09:16)
[2023-10-22] MEDS: NICOTINE 14 MG PATCH.TD24 TD (03:04)
[2023-10-22] MEDS: CEFTRIAXONE 1,000 MG in 0.9 % SODIUM CHLORIDE 50 ML 100 MG IV (03:04)
[2023-10-22] MEDS: AZITHROMYCIN 500 MG in 0.9 % SODIUM CHLORIDE 250 ML 150 MG IV (04:01)
[2023-10-22 07:41] LABS: Basophils Percent Auto 0.2 % (0.2-2.0); Eosinophils Percent Auto 0.1 % (0.9-7.0); Hematocrit 44.8 % (42.0-54.0); Hemoglobin 14.5 g/dL (14.0-18.0); Immature Granulocytes Abs Auto 0.03 10^3/uL (0.00-0.03); Immature Granulocytes Pct Auto 0.3 % (0.0-0.5); Lymphocytes Absolute Auto 1.1 10^3/uL (1.2-3.8); Lymphocytes Percent Auto 11.2 % (20.5-60.0); Mean Corpuscular HGB Conc 32.4 g/dL (29.9-35.2); Mean Corpuscular Hemoglobin 30.6 pg (25.9-34.0); Mean Corpuscular Volume 94.5 fL (80.0-94.0); Mean Platelet Volume 10.9 fL (9.5-13.5); Monocytes Absolute Auto 0.3 10^3/uL (0.3-0.8); Monocytes Percent Auto 2.7 % (1.7-12.0); Neutrophils Absolute Auto 8.7 10^3/uL (1.4-6.5); Neutrophils Percent Auto 85.5 % (43.0-75.0); Platelet Count 159 10^3/uL (150-450); Red Blood Count 4.74 10^6/uL (4.70-6.10); Red Cell Distribution Width 13.2 % (11.0-15.0); White Blood Count 10.2 10^3/uL (4.0-11.0)
[2023-10-22 07:44] LABS: Anion Gap 9.7; BUN Creatinine Ratio 32.4; Calcium 9.1 mg/dL (8.5-10.1); Carbon Dioxide 34.9 mmol/L (21.0-32.0); Chloride 97 mmol/L (98-107); Estimated GFR (African America >60 (>=60); Estimated GFR (Non-African Ame >60 (>=60); Glucose 117 mg/dL (74-106); Potassium 3.6 mmol/L (3.5-5.1); Sodium 138 mmol/L (136-145)
[2023-10-22] MEDS: VERAPAMIL HCL ER 240 MG TABLET 120 MG PO (09:17)
[2023-10-22] MEDS: POTASSIUM CHLORIDE 40 MEQ in 0.9 % SODIUM CHLORIDE 250 ML 67.5 MEQ IV (09:17)
[2023-10-22] MEDS: FLUTICASONE PROPIONATE 50 MCG NASAL SPRAY 1 SPRAY NS (09:18)
--- NOTE | 2023-10-22 11:08 | P.HP_ITS ---
Patient seen and examined. Case d/w LILLI Cortes. Agree with her findings, clinical documentation, treatment plan Patient presented with abdominal pain, nausea, vomiting and was noted to i ncarcerated umbilical hernia that was reduced in ED by Dr VENEGAS. He is doing well today and denies any GI symptoms Exam Sitting on a couch, NAD Normal RR, faint exp wheezing, no resp distress NT, ND, umbilical hernia - soft, non tender Assessment and Plan Incarcerated umbilical hernia resulting in small bowel obstruction - reduced in ED, followed by bowel movement overnight and resolution of all of patients GI symptoms. NPO after MN for surgical repair of umbilical hernia tomorrow. COPD exacerbation - mild exacerbation. No SOB. On PO prednisone for it. Pre operative clearance - no known CAD, CHF. Had carotid artery disease and CEA under [place] in 2018. no prior hx of complications from anesthesia Risk factors include: Carotid artery disease, HTN, COPD, Current smoker, age. He is fairly active and denies any symptoms concerning for an underlying CAD. He cleans up snow from his drive way, able to walk one flight of stair w/o having to stop Will get an ECHO to assess cardiac structure given risk factors mentioned above. At low risk of MACE unless sig cardiac structural abnormality noted. H&P: HPI History of Present Illness Chief complaint: nausea/ general weakness COPD EXACERBATION UMBILIC Narrative: Date/time of exam: 10/22/23919 This is an 83-year-old male patient with a past medical history as outlined below including HTN and COPD; who came to the ED last night complaining of severe abdominal pain with nausea and vomiting. He initially reported coughing up green sputum but on further exploration with the patient and his family he was actually vomiting bile. He denies any increased cough or shortness of breath beyond his baseline. The patient smokes at least a pack per day but has not smoked for 5 days and reports that he intends to quit smoking completely. He does not use O2 supplementation at home at baseline. Work-up in the ED revealed small bowel obstruction from a periumbilical hernia containing bowel. He was seen in the ED in consult by Dr. Mcgill, general surgeon. The hernia was reduced at the bedside and an abdominal binder was placed. Apparently Dr. Mcgill plans to take the patient to surgery sometime in the next few days for hernia repair. He was admitted last night to the hospitalist service. At the time of my exam the patient is resting comfortably in bed chatting with his family. The patient reports that he has had 2 bowel movements since admission to the hospital and reports that his abdominal pain is completely resolved. He denies any nausea vomiting at this time. Again, he denies any shortness of breath or worsening cough from baseline. His O2 sat at the time of my exam was 95 to 96% on 1 L and nursing has discontinued O2 supplementation and will monitor his oxygenation closely. Review of Systems ROS Status of ROS 10 or more systems reviewed and unremarkable except as noted in history and below [facility] Medical History (Updated 10/22/23 @ 11:30 by Sophia Contreras NP) Carotid arterial disease ?I77.9 - Disorder of arteries and arterioles, unspecified (ICD-10) Glaucoma ?H40.9 - Unspecified glaucoma (ICD-10) HTN (hypertension) ?I10 - Essential (primary) hypertension (ICD-10) Tobacco dependence ?F17.200 - Nicotine dependence, unspecified, uncomplicated (ICD-10) Family History (Updated 10/22/23 @ 00:50 by Jami Solorio) Mother Family history of stroke Social History (Updated 10/22/23 @ 00:55 by Jami Solorio) Within the past year, how often did you have a drink containing alcohol: never Within the past year, how often did you have six or more drinks on one occasion: never Score interpretation: A score less than 4 is consistent with normal alcohol consumption. Smoking status: Former smoker Non-prescribed substance use: denies use Previous occupational history: Retired Highest level of school completed/degree received: high school graduate Are you now , , , , never or living with a partner: In a typical week, how many times do you talk on the telephone with family, friends, or neighbors: 3 or more times per week How often do you get together with friends or relatives: 3 or more times per week How often do you attend spiritism or jew services: never Do you belong to any clubs or organizations such as spiritism groups unions, fraternal or athletic groups, or school groups: no Total score: 1 Score interpretation: A score of less than or equal to 1 indicates the most socially isolated. Little interest or pleasure in doing things: not at all Feeling down, depressed, or hopeless: not at all Feel stressed/tense/nervous/anxious/difficulty sleeping: not at all Do you think of yourself as: straight/heterosexual Gender Identity: male Meds Home Medications and Allergies Home Medications Medication Instructions Recorded Confirmed Type atorvastatin 80 mg tablet 80 mg PO DAILY 10/19/23 10/21/23 History brinzolamide 1 %-brimonidine 0.2 % 1 drp ophthalmic (eye) Q12H 10/19/23 10/21/23 History eye drops,suspension (Simbrinza) dorzolamide 22.3 mg-timolol 6.8 1 drp ophthalmic (eye) Q12H 10/19/23 10/21/23 History mg/mL eye drops latanoprost 0.005 % eye drops 1 drp ophthalmic (eye) .QHS 10/19/23 10/22/23 History verapamil 120 mg 24 hr 120 mg PO DAILY 10/19/23 10/21/23 History capsule,extended release ondansetron 4 mg disintegrating 4 mg PO Q6H PRN nausea and 10/20/23 10/21/23 Rx tablet vomiting #20 tabs aspirin 81 mg chewable tablet 81 mg PO DAILY 10/21/23 10/21/23 History (Jose Chewable Low Dose Aspirin) Allergies Allergy/AdvReac Type Severity Reaction Status Date / Time No Known Drug Allergies Allergy Verified 10/19/23 22:02 Exam Constitutional Vital Signs, click to edit/add: Last Vital Signs Temp 97.8 F 10/22/23 06:00 Pulse 75 10/22/23 08:00 Resp 22 10/22/23 06:00 BP 122/73 10/22/23 08:00 Pulse Ox 91 L 10/22/23 08:00 O2 Del Method Nasal Cannula 10/22/23 08:00 O2 Flow Rate 1 10/22/23 08:00 Common normals: no apparent distress, oriented x3, alert and well nourished General appearance: cooperative Orientation/consciousness: Yes awake [facility] Common normals: normocephalic, head/scalp atraumatic, hearing grossly normal bi laterally, external nose normal and moist oral mucous membranes Head and scalp: normocephalic and atraumatic Eye Common normals: PERRL, EOMs intact bilaterally, conjunctivae normal and no scleral icterus Alignment: alignment normal Eyelid: eyelids normal Neck & C-Spine Common normals: full ROM, supple and no JVD Chest Common normals: inspection of chest normal Chest: symmetrical chest wall rise Respiratory Common normals: normal respiratory effort, no retractions and no use of accessory muscles Effort & inspection: able to speak in complete sentences Auscultation: wheezes (Faint, scattered I&E wheezing) Cardio Common normals: no JVD, regular rate, regular rhythm, S1 normal heart sound, S2 normal heart sound, no gallops, no clicks, no murmurs, no rub and peripheral pulses 2+ throughout GI Common normals: Normal to inspection, nondistended, normoactive bowel sounds present, soft to palpation, non-tender, no hepatosplenomegaly, no masses and no bruits Bladder/kidney exam: bladder normal to palpation Back & Pelvis Common normals: thoracic and lumbar spine normal to inspection Extremity Common normals: normal capillary refill and no pedal edema General: normal exam except as noted; no cyanosis Neuro Domi Coma Scale: GCS not evaluated Common normals: oriented x3, CN's II-XII intact bilaterally, moves all extremities, no focal motor deficits and no sensory deficits noted Sensorium/orientation: awake and alert Speech: speech normal Psych Common normals: mental status grossly normal, thought process normal, affect normal and activity/motor behavior normal Results Labs Labs: Short CBC 10/21/23 10/22/23 Range/Units 15:10 07:19 WBC 13.4 H 10.2 (4.0-11.0) 10^3/uL Hgb 16.3 14.5 (14.0-18.0) g/dL Hct 49.9 44.8 (42.0-54.0) % Plt Count 193 159 (150-450) 10^3/uL BMP 10/21/23 10/22/23 15:10 07:19 Sodium 136 138 Potassium 3.2 L 3.6 Chloride 91 L 97 L Carbon Dioxide 35.1 H 34.9 H BUN 29.0 H 35.0 H Creatinine 1.44 H 1.08 Glucose 121 H 117 H Calcium 10.8 H 9.1 Liver Function 10/21/23 Range/Units 15:10 Total Bilirubin 0.7 (0.2-1.0) mg/dL AST 27 (15-37) U/L ALT 29 (16-63) U/L Alkaline Phosphatase 98 (46-116) U/L Albumin 4.0 (3.4-5.0) g/dL Urine 10/21/23 Range/Units 15:42 Urine Color Yellow (YELLOW) Urine Clarity Clear (CLEAR) Urine pH 5.5 (5.0-9.0) Ur Specific Jenners >=1.030 A (1.005-1.025) Urine Protein 30 A (NEG/TRACE) mg/dL Urine Glucose (UA) Negative (NEGATIVE) mg/dL Pulse Oximetry Attestation: I have reviewed the pertinent pulse oximetry results. Imaging Chest x-ray: Attestation: I have reviewed the pertinent imaging results. Radiologist's impression: IMPRESSION: No acute cardiopulmonary findings. CTA chest: Attestation: I have reviewed the pertinent imaging results. Radiologist's impression: IMPRESSION: No evidence of pulmonary emboli. Peribronchial thickening and scattered distal airway mucus plugging. CT scan - abdomen: Attestation: I have reviewed the pertinent imaging results. Radiologist's impression: IMPRESSION: 1. Small umbilical hernia containing a small bowel loop resulting in a small bowel obstruction. No evidence of perforation. Correlate for incarcerated umbilical hernia. 2. 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 Assessment and Plan Assessment and Plan (1) Hernia, umbilical: Assessment and Plan: ACUTE * Adm observation * Consult Gen surgery - we appreciate Dr Venegas's assistance with this pt's care * Hernia reduced in the ED per Dr Venegas * Reportedly plans surgical hernia repair on this admission - consult note still pending * Pt NPO pending further instruction from the surgery service * Maintain abdominal binder (2) SBO (small bowel obstruction): Assessment and Plan: ACUTE * 2/2 incarcerated hernia, s/p reduction in the ED * Apparently resolved as pt's pain/N/V have all resolved w/o NGT placement * BM x 2 since reduction * Consider NGT placement if symptoms recur * Defer to the surgical service for further management * Pt NPO for now pending possible OR today (3) Acute exacerbation of chronic obstructive pulmonary disease: Assessment and Plan: ACUTE * Mild symptoms have nearly resolved * Small peripheral mucous plugging noted on CTA Chest * guaifenesin for mucous mobilization * Consider mucomyst nebs pending clinical course * Continue scheduled and prn nebs * Solumedrol initiated in the ED, reduce to PO Prednisone 40 mg daily * Continue Rocephin and azithromycin for now * O2 as needed to keep sats > 90% - Nursing weaned off O2 supplementation this morning. Monitor response (4) Glaucoma: Assessment and Plan: CHRONIC * Continue home timolol, latanoprost eye gtts (5) HTN (hypertension): Assessment and Plan: CHRONIC * Continue home verapamil (6) Carotid arterial disease: Assessment and Plan: CHRONIC * Continue home daily low dose ASA, statin (7) Tobacco dependence: Assessment and Plan: CHRONIC * Nicoderm patch 14 mg daily * Advised complete tobacco cessation
[2023-10-22] MEDS: IPRATROPIUM/ALBUTEROL SULFATE 3 ML AMPUL.NEB IH ×4 (11:19→23:07)
--- NOTE | 2023-10-22 11:43 | CM.NOTE ---
Rounds made with Dr. Russo. Dr. Russo reviewed past medical history with Mr. Lee. Dr. Venegas notified by Dr. Russo as well. Dr. Venegas will see Mr. Lee later today to review plan of care.
--- NOTE | 2023-10-22 11:57 | CA_ITS ---
Patient Name: MAGDA ALEJO MR#: [id number] : 1940 Exam Date: 10/22/2023 Ordering Doctor: Shaikh Minerva Russo . ECHOCARDIOGRAM REPORT PROCEDURE: CA ECHO DOPPLER COMPLETE INDICATIONS: pre operative clearance, acute exacerbation of COPD, hypertension, smoker COMPARISON: None. DESCRIPTION: COMPLETE ECHOCARDIOGRAM Real-time transthoracic echocardiography with 2D, M-mode, spectral and color flow Doppler performed. QUALITY: Technical quality was good. 71 , 172# , BSA 1.98 m2 LEFT VENTRICLE: Normal chamber size. Moderate left ventricular hypertrophy. LV EF: Normal left ventricular ejection fraction, (>55%). DIASTOLIC: Grade II diastolic dysfunction. ATRIAL SEPTUM: Not well-visualized. LEFT ATRIUM: Severe dilatation. RIGHT ATRIUM: Moderate dilatation. RIGHT VENTRICLE: Normal chamber size. Normal right ventricular systolic function. TRICUSPID VALVE: Normal mobility and thickness. No regurgitation. Unable to estimate right ventricular systolic pressure due to lack of measurable tricuspid regurgitation. MITRAL VALVE: Severe mitral annular calcification. Nonspecific thickening of the mitral valve leaflets. Elevated velocities and gradients across the mitral valve likely related to volume overload state. No mitral regurgitation. AORTIC VALVE: Normal trileaflet appearance. Mild calcification. Normal leaflet mobility. No evidence of aortic valve stenosis. Mild aortic regurgitation. AORTIC ROOT: Normal diameter and appearance. PULMONIC VALVE: Not well visualized. No stenosis. No regurgitation. PERICARDIUM: No evidence of pericardial effusion. IVC: Collapses with inspirations. CONCLUSION: 1. Global left ventricular systolic function is normal; visually estimated ejection fraction is 60 to 65% 2. Moderate left ventricular hypertrophy 3. The right ventricle is normal in size and systolic function 4. Grade 2, moderate diastolic dysfunction 5. Biatrial enlargement 6. Mild aortic valve regurgitation Adult Echocardiography Procedure Report Left Ventricle LVEDD (3.7 - 5.6 cm): 4.03 cm LVESD (2.2 - 4.0 cm): 2.68 cm LVIVS thickness (0.6 - 1.2 cm): 1.58 cm LVPW thickness (0.5 - 1.0 cm): 1.36 cm e': 0.09 m/s E - e': 14.59 LVOT Max Gradient: 3.67 mm[Hg], 3.81 mm[Hg] LVOT Area (cm2): 0.97 m/s Peak Velocity (LVOT): 0.96 m/s, 0.98 m/s Mean Velocity (LVOT): 0.65 m/s LVOT Diameter 2.19 cm Left Atrium LA Volume Index (2D A2C): 63.46 ml/m2 Left Atrium Systolic Dimension: 3.46 cm Mitral Valve MV E to A Ratio: 1.04, 1.06 Mitral Valve A-Wave Peak Velocity: 1.21 m/s Mitral Valve E-Wave Peak Velocity: 1.27 m/s Right Ventricle Aorta AO Root Diam: 3.50 cm Aortic Valve AoV Area (Peak Jeremiah): 2.43 cm2, 2.41 cm2 AoV Area (VTI): 2.47 cm2, 2.49 cm2 Peak Velocity(Antegrade Flow): 1.50 m/s Peak Gradient(Antegrade Flow): 8.97 mm[Hg] Mean Velocity(Antegrade Flow): 0.97 m/s Mean Gradient(Antegrade Flow): 4.38 mm[Hg] Velocity Time Integral: 35.91 cm Tricuspid Valve Pulmonic Valve Peak Velocity: 0.89 m/s Peak Gradient: 3.32 mm[Hg], 3.06 mm[Hg] Right Atrium Right Atrium Systolic Pressure: 60.05 ml, 60.05 ml Dictated by: Avis Varela M.D. on 10/23/2023 at 08:40 Approved by: Avis Varela M.D. on 10/23/2023 at 08:46
[2023-10-22 13:16] LABS: Troponin I High Sensitivity 39.3 pg/mL (4.0-76.1)
--- NOTE | 2023-10-22 15:46 | RESP.RT ---
placed on 2 l NC
[2023-10-22] MEDS: PREDNISONE 20 MG TABLET 40 MG PO (15:47)
--- NOTE | 2023-10-22 16:03 | CM.NOTE ---
Medicare Outpatient Observation Notice discussed with pt, pt verbalizes understanding and signs paper. Original given to pt and copy placed on pt's chart.
--- NOTE | 2023-10-22 16:25 | PM.GSPN ---
Progress Note: A&P Assessment and Plan (1) Hernia, umbilical: Assessment and Plan: reduced; plan primary repair tomorrow under general anesthesia, informed consent obtained. (2) SBO (small bowel obstruction): Assessment and Plan: resolved after hernia reduced in ED. (3) Acute exacerbation of chronic obstructive pulmonary disease: (4) Glaucoma: (5) HTN (hypertension): (6) Carotid arterial disease: (7) Tobacco dependence: Plan doing well, plan primary umbilical hernia repair tomorrow under general anesthesia; informed consent obtained. Subjective Subjective Interval history: HD # 2, s/p reduction of incarcerated umbilical hernia causing small bowel obstruction, obstruction resolved; doing well, denies abd pain, no N/V; several bms yesterday; tolerating diet without problems. Exam Narrative Exam Narrative: abd: soft, normal bs, nontender, nondistended; umbilicus with < 1 cm defect, no masses or HSM Constitutional Vital Signs, click to edit/add: Last Vital Signs Temp 97.8 F 10/22/23 14:00 Pulse 78 10/22/23 14:00 Resp 22 10/22/23 06:00 BP 117/81 10/22/23 14:00 Pulse Ox 85 L 10/22/23 15:45 O2 Del Method Room Air 10/22/23 15:45 O2 Flow Rate 1 10/22/23 08:00
[2023-10-22] MEDS: DORZOLAMIDE HCL 2%/TIMOLOL MALEATE 0.5% 200 DROP/10 ML BOTTLE OP (20:19)
[2023-10-23] VITALS (21 sets, daily range): BP systolic 93–146; BP diastolic 61–92; PULSE 63–85; RESP 14–23; TEMP 36.1–36.7; O2SAT 90–98
--- NOTE | 2023-10-23 | OP_ITS ---
OPERATION DATE: ??10/23/2023 PREOPERATIVE DIAGNOSIS:? Umbilical hernia with previous episode of incarcerated small bowel with small bowel obstruction. POSTOPERATIVE DIAGNOSIS:? Umbilical hernia with previous episode of incarcerated small bowel with small bowel obstruction. PROCEDURE:? Primary umbilical herniorrhaphy for less than 1 cm umbilical defect. SURGEON:? Rigo Venegas M.D. TISSUE PACKER:? KAITLYN [place] ESTIMATED BLOOD LOSS:? Less than 5 mL. INDICATIONS AND CONSENT:? Patient is an 83-year-old male with a four day history of nausea, vomiting and mid abdominal pain, was found to have an incarcerated umbilical hernia with incarcerated loop of small bowel causing small bowel obstruction.? This was found on Sunday and the hernia was manually reduced in the emergency room by myself.? He was admitted, optimized medically and now presents for herniorrhaphy to prevent recurrence.? Indications, risks, benefits, alternatives of proceeding with primary herniorrhaphy were explained extensively to the patient, including risks of bleeding, infection, scarring, pain, recurrent hernia, bowel injury, blood clot, pulmonary embolus, heart attack, anesthetic complications and need for further surgery.? All his questions were answered.? Informed consent was obtained. PROCEDURE:? Patient brought to the operating room, placed in the supine position.? General anesthesia was induced.? He was prepped and draped in the usual sterile fashion.? Prior to that, a rectus sheath block was performed by Dr. Barraza.? Patient was prepped and draped in the usual sterile fashion.? A supraumbilical incision was made with the scalpel blade and carried down through subcutaneous tissue using sharp dissection as well as electrocautery.? The hernia sac was freed up from the umbilicus.? It was opened.? There was some incarcerated omentum within that was freed up and reduced back into the abdomen.? The hernia sac was excised with electrocautery.? The defect was noted to be approximately 1 cm.? The defect was closed transversely with interrupted #1 Prolene, as well as interrupted 0 Surgidac braided polyester sutures.? There was good hemostasis.? The wound was irrigated with saline.? The umbilicus was tacked back down to the fascia using 3-0 Monocryl sutures.? Subcutaneous tissue was re-approximated with interrupted 3-0 Monocryl suture.? Skin was then closed with a running 4-0 subcuticular Monocryl suture and skin glue. A sterile pressure dressing was applied, as well as an abdominal binder.? Sponge and needle counts were correct x2 per nursing personnel.? Patient tolerated procedure well, was send to recovery area in good condition. CC:? Cynthia Saldaña
[2023-10-23] MEDS: CEFTRIAXONE 1,000 MG in 0.9 % SODIUM CHLORIDE 50 ML 100 MG IV (01:10)
[2023-10-23] MEDS: AZITHROMYCIN 500 MG in 0.9 % SODIUM CHLORIDE 250 ML 150 MG IV (02:04)
[2023-10-23] MEDS: IPRATROPIUM/ALBUTEROL SULFATE 3 ML AMPUL.NEB IH ×2 (03:52→07:01)
[2023-10-23 06:29] LABS: Hematocrit 40.5 % (42.0-54.0); Hemoglobin 13.2 g/dL (14.0-18.0); Mean Corpuscular HGB Conc 32.6 g/dL (29.9-35.2); Mean Corpuscular Hemoglobin 30.3 pg (25.9-34.0); Mean Corpuscular Volume 93.1 fL (80.0-94.0); Mean Platelet Volume 11.3 fL (9.5-13.5); Platelet Count 151 10^3/uL (150-450); Red Blood Count 4.35 10^6/uL (4.70-6.10); Red Cell Distribution Width 12.9 % (11.0-15.0); White Blood Count 12.8 10^3/uL (4.0-11.0)
[2023-10-23 06:30] LABS: Basophils Percent Auto 0.1 % (0.2-2.0); Immature Granulocytes Pct Auto 0.3 % (0.0-0.5); Lymphocytes Percent Auto 8.6 % (20.5-60.0); Monocytes Percent Auto 5.2 % (1.7-12.0); Neutrophils Percent Auto 85.8 % (43.0-75.0)
[2023-10-23 06:31] LABS: Immature Granulocytes Abs Auto 0.04 10^3/uL (0.00-0.03); Lymphocytes Absolute Auto 1.1 10^3/uL (1.2-3.8); Monocytes Absolute Auto 0.7 10^3/uL (0.3-0.8)
[2023-10-23 06:35] LABS: Anion Gap 10.5; Carbon Dioxide 29.4 mmol/L (21.0-32.0); Chloride 98 mmol/L (98-107); Glucose 143 mg/dL (74-106); Potassium 3.9 mmol/L (3.5-5.1); Sodium 134 mmol/L (136-145)
[2023-10-23 06:36] LABS: BUN Creatinine Ratio 34.5; Calcium 8.6 mg/dL (8.5-10.1); Estimated GFR (African America >60 (>=60); Estimated GFR (Non-African Ame >60 (>=60)
[2023-10-23] MEDS: DORZOLAMIDE HCL 2%/TIMOLOL MALEATE 0.5% 200 DROP/10 ML BOTTLE OP ×2 (09:54→20:47)
[2023-10-23] MEDS: FLUTICASONE PROPIONATE 50 MCG NASAL SPRAY 1 SPRAY NS (09:55)
[2023-10-23] MEDS: LACTATED RINGER'S SOLUTION 1,000 ML 50 ML IV (10:22)
--- NOTE | 2023-10-23 10:50 | CM.NOTE ---
Rounds made with Dr. Russo pt going to OR today.
[2023-10-23] MEDS: CEFAZOLIN SODIUM/DEXTROSE,ISO 2 GM/50 ML PIGGYBACK IV (10:55)
[2023-10-23] MEDS: ATORVASTATIN CALCIUM 40 MG TABLET 80 MG PO (14:35)
[2023-10-23] MEDS: ASPIRIN 81 MG TAB.CHEW PO (14:35)
[2023-10-23] MEDS: GUAIFENESIN 600 MG TAB.ER.12H PO ×2 (14:35→20:46)
[2023-10-23] MEDS: PREDNISONE 20 MG TABLET 40 MG PO (14:36)
[2023-10-23] MEDS: ENOXAPARIN SODIUM 40 MG/0.4 ML SYRINGE SUBQ (14:36)
[2023-10-23] MEDS: NICOTINE 14 MG PATCH.TD24 TD (14:36)
[2023-10-23] MEDS: VERAPAMIL HCL ER 240 MG TABLET 120 MG PO (14:41)
--- NOTE | 2023-10-23 14:42 | P.PN_ITS ---
<Statement entered by Shaikh Karan MD - 10/23/23 22:57> This documentation has been reviewed and approved. Seen and examined. Case discussed with Sophia. Agree with clinical findings, treatment plan. Patient NPO for Umbilical hernia repair. Exam: Sitting in bed, NAD CTA b/l no wheezing NT, ND, umbilical hernia - soft, non tender Assessment and Plan COPD exacerbation SBO sec to incarcerated hernia HTN No resp distress, no wheezing. On prednisone for COPD exacerbation. NPO for umbilical hernia repair later today. Will stay overnight for monitoring for resp status to reduce the risk of post op resp complications/compromise Progress Note: Subjective Subjective Interval history: 10/23/23 0850 The pt is resting in bed visiting with family. He is in good spirits and only complains of a dry mouth while NPO. He continues to deny any abdominal pain, Nausea, or vomiting. Surgery per Dr Venegas for hernia repair is planned for later this morning. Pt will be made an inpatient d/t incarcerated hernia w/ assoc SBO with high risk of recurrence requiring emergent surgery. Exam Constitutional Vital Signs, click to edit/add: Last Vital Signs Temp 97.0 F L 10/23/23 13:25 Pulse 71 10/23/23 13:25 Resp 18 10/23/23 13:25 BP 138/69 10/23/23 13:25 Pulse Ox 93 L 10/23/23 13:25 O2 Del Method Room Air 10/23/23 13:25 O2 Flow Rate 2 10/22/23 23:07 Common normals: no apparent distress, oriented x3 and alert General appearance: cooperative Orientation/consciousness: Yes awake [facility] Common normals: normocephalic, head/scalp atraumatic and hearing grossly normal bilaterally Eye Common normals: PERRL, EOMs intact bilaterally, conjunctivae normal and no scleral icterus General eye: normal appearance of both eyes Chest Common normals: inspection of chest normal Chest: symmetrical chest wall rise Respiratory Common normals: normal respiratory effort, no use of accessory muscles and clear to auscultation bilaterally Effort & inspection: able to speak in complete sentences Cardio Common normals: regular rate, regular rhythm, S1 normal heart sound, S2 normal heart sound, no murmurs and peripheral pulses 2+ throughout GI Common normals: Normal to inspection, nondistended, normoactive bowel sounds present, soft to palpation, non-tender and no hepatosplenomegaly Bladder/kidney exam: bladder normal to palpation Extremity Common normals: normal to inspection and no calf tenderness General: no clubbing, no cyanosis and no edema Neuro Common normals: CN's II-XII intact bilaterally, moves all extremities, no focal motor deficits and no sensory deficits noted Psych Common normals: mental status grossly normal Progress Note: Objective Labs Labs: Short CBC 10/23/23 Range/Units 04:37 WBC 12.8 H (4.0-11.0) 10^3/uL Hgb 13.2 L (14.0-18.0) g/dL Hct 40.5 L (42.0-54.0) % Plt Count 151 (150-450) 10^3/uL BMP 10/23/23 04:37 Sodium 134 L Potassium 3.9 Chloride 98 Carbon Dioxide 29.4 BUN 30.0 H Creatinine 0.87 Glucose 143 H Calcium 8.6 Progress Note: A&P Assessment and Plan (1) Hernia, umbilical: Assessment and Plan: ACUTE * Change to full inpatient admission * Consult Gen surgery - we appreciate Dr Venegas's assistance with this pt's care * Hernia reduced in the ED per Dr Venegas * OR later this morning for hernia repair - high likelihood of recurrence of incarcerated bowel * Defer post op pain management, IVFs, and activity to the surgical service * Maintain abdominal binder pending surgery * CBC, BMP daily (2) SBO (small bowel obstruction): Assessment and Plan: ACUTE * 2/2 incarcerated hernia, s/p reduction in the ED * Apparently resolved as pt's pain/N/V have all resolved after hernia reduction * BMs noted post reduction * Defer to the surgical service for further management - see hernia above (3) Acute exacerbation of chronic obstructive pulmonary disease: Assessment and Plan: ACUTE * Resolved * at baseline * Continue and prn nebs * Continue PO Prednisone 40 mg today, then d/c in AM to encourage post op healing. * Continue Rocephin and azithromycin for now * O2 as needed to keep sats > 90% - Nursing weaned off O2 supplementation 09/22/23. Monitor response (4) Glaucoma: Assessment and Plan: CHRONIC * Continue home timolol, latanoprost eye gtts (5) HTN (hypertension): Assessment and Plan: CHRONIC * Continue home verapamil (6) Carotid arterial disease: Assessment and Plan: CHRONIC * Continue home daily low dose ASA, statin (7) Tobacco dependence: Assessment and Plan: CHRONIC * Nicoderm patch 14 mg daily * Advised complete tobacco cessation
[2023-10-23] MEDS: DEXTROSE 5 %-0.45 % SOD CHLORD 1,000 ML 75 ML IV (16:26)
[2023-10-24] MEDS: CEFTRIAXONE 1,000 MG in 0.9 % SODIUM CHLORIDE 50 ML 100 MG IV (01:38)
[2023-10-24] MEDS: AZITHROMYCIN 500 MG in 0.9 % SODIUM CHLORIDE 250 ML 250 MG IV (02:13)
[2023-10-24] MEDS: CALCIUM CARBONATE 500 MG (200MG ELEMENTAL) TAB CHEW PO (02:18)
[2023-10-24 05:26] LABS: Anion Gap 12.3; BUN Creatinine Ratio 26.2; Calcium 8.4 mg/dL (8.5-10.1); Carbon Dioxide 23.3 mmol/L (21.0-32.0); Chloride 99 mmol/L (98-107); Estimated GFR (African America >60 (>=60); Estimated GFR (Non-African Ame >60 (>=60); Glucose 123 mg/dL (74-106); Potassium 4.6 mmol/L (3.5-5.1); Sodium 130 mmol/L (136-145)
[2023-10-24 05:29] VITALS: BP 136/88; PULSE 70; RESP 18; TEMP 36.5; O2SAT 93
[2023-10-24] MEDS: DEXTROSE 5 %-0.45 % SOD CHLORD 1,000 ML 75 ML IV (05:33)
--- NOTE | 2023-10-24 06:57 | PM.GSPN ---
Progress Note: A&P Assessment and Plan (1) Hernia, umbilical: Assessment and Plan: repaired; doing well; continue to wear abd binder; no lifting > 10 lbs for 4 weeks; ok for discharge from surgical standpoint; f/u with me in office next week; Tylenol as needed for pain, no need for narcotics at this point. (2) SBO (small bowel obstruction): (3) Acute exacerbation of chronic obstructive pulmonary disease: (4) Glaucoma: (5) HTN (hypertension): (6) Carotid arterial disease: (7) Tobacco dependence: Subjective Subjective Interval history: POD # 1 s/p primary repair of umbilical hernia doing well, denies pain, no N/V, tolerating regular diet Exam Narrative Exam Narrative: abd: soft, positive bs, minimally distended; increased subcutaneous fluid from rectus sheath nerve block; incision with erythema or drainage, no ecchymoses or hematoma. Constitutional Vital Signs, click to edit/add: Last Vital Signs Temp 97.7 F 10/24/23 05:29 Pulse 70 10/24/23 05:29 Resp 18 10/24/23 05:29 BP 136/88 10/24/23 05:29 Pulse Ox 93 L 10/24/23 05:29 O2 Del Method Room Air 10/24/23 05:29 O2 Flow Rate 2 10/22/23 23:07
[2023-10-24 07:32] LABS: Basophils Percent Auto 0.1 % (0.2-2.0); Hematocrit 43.5 % (42.0-54.0); Immature Granulocytes Abs Auto 0.05 10^3/uL (0.00-0.03); Immature Granulocytes Pct Auto 0.3 % (0.0-0.5); Lymphocytes Absolute Auto 1.7 10^3/uL (1.2-3.8); Lymphocytes Percent Auto 11.4 % (20.5-60.0); Mean Corpuscular HGB Conc 32.2 g/dL (29.9-35.2); Mean Corpuscular Hemoglobin 30.2 pg (25.9-34.0); Mean Platelet Volume 11.5 fL (9.5-13.5); Monocytes Absolute Auto 1.2 10^3/uL (0.3-0.8); Monocytes Percent Auto 7.7 % (1.7-12.0); Neutrophils Absolute Auto 12.1 10^3/uL (1.4-6.5); Neutrophils Percent Auto 80.5 % (43.0-75.0); Platelet Count 164 10^3/uL (150-450); Red Blood Count 4.63 10^6/uL (4.70-6.10); White Blood Count 15.1 10^3/uL (4.0-11.0)
[2023-10-24 08:59] VITALS: BP 139/64
[2023-10-24] MEDS: ATORVASTATIN CALCIUM 40 MG TABLET 80 MG PO (08:59)
[2023-10-24] MEDS: ASPIRIN 81 MG TAB.CHEW PO (08:59)
[2023-10-24] MEDS: VERAPAMIL HCL ER 240 MG TABLET 120 MG PO (08:59)
[2023-10-24] MEDS: FLUTICASONE PROPIONATE 50 MCG NASAL SPRAY 1 SPRAY NS (09:00)
[2023-10-24] MEDS: GUAIFENESIN 600 MG TAB.ER.12H PO (09:00)
[2023-10-24] MEDS: NICOTINE 14 MG PATCH.TD24 TD (09:00)
[2023-10-24] MEDS: ENOXAPARIN SODIUM 40 MG/0.4 ML SYRINGE SUBQ (09:00)
[2023-10-24] MEDS: DORZOLAMIDE HCL 2%/TIMOLOL MALEATE 0.5% 200 DROP/10 ML BOTTLE OP (09:03)
--- NOTE | 2023-10-24 09:28 | P.DS_ITS ---
<Statement entered by Shaikh Karan MD - 10/24/23 11:48> This documentation has been reviewed and approved. Seen and examined. Chart reviewed, case d/w Sophia. Agree with her findings, treatment. No events, comfortable. Pain is well controlled. Cleared by Surgery for D/c. Exam Sitting on a couch, NAD NT, ND, abdominal binder in place CTA b/l, no wheezing Assessment and Plan SBO due to incarcerated hernia COPD exacerbation HTN S/p repair. Outpatient f/u with Dr Venegas. COPD exacerbation responded well to PO prednisone. F/u with PCP in one week Stable for discharge DS: Providers Provider Date of admission: 10/21/23 20:00 Primary care physician: SUDHA CAMPBELL Consults: 10/22/23 01:20 Physical Therapy Eval and Treat Routine Reason for consultation: weakness 10/22/23 07:01 Consult to General Surgeon Routine Consulting Provider: Rigo Venegas Reason for consultation: Umbilical hernia Discharging clinician: Sophia Contreras DS: Diagnosis Discharge Diagnosis (1) Hernia, umbilical: (2) SBO (small bowel obstruction): (3) Acute exacerbation of chronic obstructive pulmonary disease: (4) Glaucoma: (5) HTN (hypertension): (6) Carotid arterial disease: Qualifiers: Carotid artery disease type: unspecified Laterality: unspecified laterality Qualified Code(s): I77.9 - Disorder of arteries and arterioles, unspecified (7) Tobacco dependence: DS: Summary Hospital Course Hospital Course: Patient was admitted with an incarcerated periumbilical hernia and small bowel obstruction. The hernia was successfully reduced by the surgeon in the ED, and did not recur with an abdominal binder in place. The general surgeon, Dr. Venegas, I believe that emergent surgery was required as there was a high risk of recurrence if the hernia was not repaired. The patient was taken to the operating room on 10/23/2023 for a hernia repair. His postoperative period was unremarkable and he recovered faster than expected. He has minimal to no pain with an abdominal binder in place and is eating well and passing flatus. There was some question of acute COPD exacerbation on admission. The patient's respiratory status remained at his baseline throughout his stay. He was treated briefly with p.o. steroids but these have been discontinued in the postoperative period to promote healing. His respiratory status is stable and he is not hypoxic. Concern for respiratory compromise was likely 2/2 his severe abdominal pain impairing his ability to take deep breaths prior to admission. The patient has been strongly encouraged to pursue complete tobacco cessation and he verbalizes the intention to do so. He is being discharged home in stable condition with Tylenol for pain. He is to keep the abdominal binder in place and avoid lifting more than 10 pounds. He should follow-up with Dr. Venegas next week in his office. A NicoDerm patch has been prescribed at discharge to assist the patient with tobacco cessation. Time Spent with Patient Time attestation: Total time spent providing and/or coordinating discharge services: Time spent: greater than 30 minutes Specific discharge activities: Physical exam, discussion of discharge plan, questions answered. Exam Constitutional Vital Signs, click to edit/add: Last Vital Signs Temp 97.7 F 10/24/23 05:29 Pulse 70 10/24/23 05:29 Resp 18 10/24/23 05:29 BP 139/64 10/24/23 08:59 Pulse Ox 93 L 10/24/23 05:29 O2 Del Method Room Air 10/24/23 05:29 O2 Flow Rate 2 10/22/23 23:07 Common normals: no apparent distress, oriented x3 and alert General appearance: cooperative Orientation/consciousness: Yes awake HENMT Common normals: normocephalic and head/scalp atraumatic Eye Common normals: PERRL, EOMs intact bilaterally, conjunctivae normal and no scleral icterus Neck & C-Spine Common normals: no JVD Respiratory Common normals: normal respiratory effort and no use of accessory muscles Effort & inspection: able to speak in complete sentences and symmetric chest movement Cardio Common normals: no JVD, regular rate, regular rhythm, S1 normal heart sound, S2 normal heart sound, no murmurs and peripheral pulses 2+ throughout GI Common normals: Normal to inspection, nondistended, normoactive bowel sounds present, soft to palpation and non-tender Bladder/kidney exam: bladder normal to palpation Extremity Common normals: normal to inspection, full ROM, normal capillary refill and no pedal edema General: no cyanosis Neuro Common normals: moves all extremities, no focal motor deficits and no sensory deficits noted Speech: speech normal Psych Common normals: mental status grossly normal and activity/motor behavior normal DS: Data Data Completed and Pending Labs on day of discharge: Labs from last 24 hours 10/24/23 10/24/23 07:23 04:50 WBC 15.1 H RBC 4.63 L Hgb 14.0 Hct 43.5 MCV 94.0 MCH 30.2 MCHC 32.2 RDW 13.0 Plt Count 164 MPV 11.5 Neut % (Auto) 80.5 H Lymph % (Auto) 11.4 L [place] % (Auto) 7.7 Eos % (Auto) 0.0 L Baso % (Auto) 0.1 L Neut # (Auto) 12.1 H Lymph # (Auto) 1.7 [place] # (Auto) 1.2 H Eos # (Auto) 0.0 Baso # (Auto) 0.0 Abs Immat Gran (auto) 0.05 H Imm/Tot Granulo (auto) 0.3 Sodium 130 L Potassium 4.6 Chloride 99 Carbon Dioxide 23.3 Anion Gap 12.3 BUN 16.0 Creatinine 0.61 L Est GFR ( Amer) >60 Est GFR (Non-Af Amer) >60 BUN/Creatinine Ratio 26.2 Glucose 123 H Calcium 8.4 L Discharge Plan Discharge Disposition: Home, Self-Care Condition: Good Discharge Medications: New nicotine [Nicoderm CQ] 14 mg/24 hr patch 24 hour 1 patch transdermal DAILY Qty: 28 0RF Continued latanoprost 0.005 % drops 1 drp OPHTHALMIC (EYE) .QHS atorvastatin 80 mg tablet 80 mg PO DAILY dorzolamide-timolol 22.3-6.8 mg/mL drops 1 drp OPHTHALMIC (EYE) Q12H verapamil 120 mg capsule,ext rel. pellets 24 hr 120 mg PO DAILY Simbrinza 1-0.2 % drops,suspension 1 drp OPHTHALMIC (EYE) Q12H ondansetron 4 mg tablet,disintegrating 4 mg PO Q6H PRN (Reason: nausea and vomiting) Qty: 20 0RF aspirin [Jose Chewable Aspirin] 81 mg tablet,chewable 81 mg PO DAILY Activity: increase activity as tolerated Diet: advance to your usual diet Patient Instructions: Umbilical Hernia Repair (DC) Activity Restrictions/Additional Instructions: - Continue to wear abdominal binder - No lifting > 10 lbs for 4 weeks - Tylenol as needed for pain, no need for narcotics at this point Forms: Portal Instructions Follow Up Appointments: Dr Venegas October 30 at 4pm. Please arrive at 3:45pm. [address] [facility].
[2023-10-24 09:54] VITALS: O2SAT 90
--- NOTE | 2023-10-24 12:00 | CM.NOTE ---
Rounds made with suresh Arora for discharge to home today. No discharge needs identified. Pt already dressed and up ad pedrito in room.
--- OUTSIDE RECORDS SUMMARY | 2023-11-07 01:21 | XMS_ITS | CCD ---
Author Name Unknown Address [address] [facility] [address] [place] [address] Organization [facility] Care Team Providers Care Service Technician Copier Name Role Phone BEN CHAIDEZ Primary Care Unavailable KRISS ROGERS Attending Unavailable KRISS ROGERS Consulting Unavailable KRISS ROGERS Admitting Unavailable SARAHI NOYOLA Consulting Unavailable DO Ben Chaidez Primary Care Provider [phone] DO Ben Chaidez Attending Provider Jakub Mejia Unavailable DO Ben Chaidez Primary Care Provider [phone] MD Jakub Mejia Attending Provider Jakub Mejia Attending Unavailable Jakub Mejia Admitting Unavailable Ben Chaidez Primary Care Unavailable BEN CHAIDEZ Primary Care Physician Rigo CORDERO Attending Unavailable Rigo CORDERO Attending Unavailable Rigo CORDERO Attending Unavailable Allergies Allergy Classification Reported Allergen(s) Allergy Type Date of Onset Reaction(s) Facility (1 source) HCTZ Propensity to adverse reactions rash [facility] Other (1 source) No Known Medication Allergies; Translations: [No Known Medication Allergies] Propensity to adverse reactions (disorder) [facility] Repository Medications Current Medications Medication Drug Class(es) Dates Sig (Normalized) Sig (Original) acetaminophen 325 mg / HYDROcodone bitartrate 5 mg oral tablet (2 sources) Opioid Agonist Start: 08-16-2017 take 1 tablet by mouth every four to six hours Hydrocodone-Acet aminophen ([place]) 5-325 mg tablet Active 1 TAB PO EVERY 4-6 HOURS August 16, 2017 ascorbic acid 500 mg extended release oral capsule (2 sources) Vitamin C Start: 08-09-2017 take 1 capsule by mouth once daily Ascorbic Acid (Vitamin C) (Vitamin C) 500 mg Capsule, Extended Release Active 500 MG PO Daily August 09, 2017 12:00am Aspir-81 81 MG (1 source) take 1 tablet by mouth once daily Aspir-81 81 MG 1 tablet Orally Once a day Active aspirin 81 mg chewable tablet (3 sources) Platelet Aggregation Inhibitor, Nonsteroidal Anti-inflammatory Drug Start: 10-25-2023 aspirin 81 mg Chew Tab 81 mg = 1 tab(s), Chewed, Daily, Refills(s) 0 Start Date: 10/25/23 Status: Ordered Start: 08-09-2017 take 81 mg by mouth once daily Aspirin Active 81 MG PO Daily August 09, 2017 12:00am atorvastatin 80 mg oral tablet (4 sources) HMG-CoA Reductase Inhibitor Start: 10-25-2023 take 1 tablet by mouth once daily atorvastatin 80 mg Tab 80 mg = 1 tab(s), Oral, Daily, Refills(s) 0 Start Date: 10/25/23 Status: Ordered Start: 08-09-2017 take 40 mg by mouth once daily Atorvastatin Active 40 MG PO Daily August 09, 2017 12:00am brimonidine tartrate 2 mg/ml / brinzolamide 10 mg/ml ophthalmic suspension (2 sources) Carbonic Anhydrase Inhibitor, alpha-Adrenergic Agonist Start: 10-25-2023 Simbrinza 0.2%- 1% ophthalmic suspension Refill(s) 0, as directed Start Date: 10/25/23 Status: Ordered take 1 drop(s) into the eye(s) twice daily Simbrinza 1-0.2 % INSTILL 1 DROP INTO RI GHT EYE TWICE DAILY Ophthalmic for 30 Active bumetanide 1 mg oral tablet (2 sources) Loop Diuretic Start: 08-09-2017 take 1 mg by mouth once daily Bumetanide Active 1 MG PO Daily August 09, 2017 12:00am dorzolamide 20 mg/ml ophthalmic solution (2 sources) Carbonic Anhydrase Inhibitor Start: 08-09-2017 Dorzolamide Active 1 DROPS OPHTHALMIC 1-3 TIMES DAILY August 09, 2017 12:00am dorzolamide / Timolol (1 source) Carbonic Anhydrase Inhibitor, beta-Adrenergic Gi Start: 10-19-2023 dorzolamide-timolo l ophthalmic Refill(s) 0, 0 Refill(s) Start Date: 10/19/23 Status: Ordered latanoprost 0.05 mg/ml ophthalmic suspension (4 sources) Prostaglandin Analog Start: 10-25-[address] 0.005% ophthalmic emulsion Refill(s) 0, as directed Start Date: 10/25/23 Status: Ordered Start: 08-16-2017 take 1 drop(s) into the eye(s) once daily at bedtime Latanoprost Active 1 DROPS OPHTHALMIC Daily at bedtime August 16, 2017 12:00am take 1 drop(s) into the eye(s) once daily in the evening Latanoprost 0.005 % 1 drop into affected eye in the evening Ophthalmic Once a day Active Multivitamin preparation (2 sources) Start: 08-09-2017 take 1 tablet by mouth once daily Multivitamin Active 1 TAB PO Daily August 09, 2017 12:00am omeprazole 20 mg delayed release oral capsule (2 sources) Proton Pump Inhibitor Start: 08-09-2017 take 20 mg by mouth two times weekly Omeprazole Active 20 MG PO Twice a Week August 09, 2017 12:00am Potassium (1 source) potassium 1 tab Oral Active verapamil hydrochloride 120 mg extended release oral tablet (4 sources) Calcium Channel Gi Start: 10-25-2023 take 1 tablet by mouth once daily verapamil 120 mg ER Tab 120 mg = 1 tab(s), Oral, Daily, Refills(s) 0 Start Date: 10/25/23 Status: Ordered Start: 08-09-2017 take 240 mg by mouth once stephanie y Verapamil Active 240 MG PO Daily August 09, 2017 12:00am take 1 tablet by edgar th every twenty-four hours Verapamil HCl 120 MG 1 tablet Orally Daily Active zinc gluconate 30 mg oral tablet (2 sources) Start: 08-09-2017 take 45 mg by mouth once daily Zinc Gluconate Active 45 MG PO Daily August 09, 2017 12:00am Completed/Discontinued Medications Medication Drug Class(es) Dates Sig (Normalized) Sig (Original) colesevelam hydrochloride 625 mg oral tablet (2 sources) Bile Acid Sequestrant Start: 08-09-2017 End: 08-10-2017 take 1 tablet by mouth twice daily Colesevelam (Welchol) 625 mg Tablet Discontinued 625 MG PO Twice daily August 09, 2017 12:00am August 10, 2017 8:19am Stool Softener (1 source) take 1 capsule by mouth once daily as needed Stool Softener 1 capsule as needed Orally Once a day Not-Taking Problems Problem Classification Problem Date Documented Date Episodic/Chronic Abdominal hernia (2 sources) Obstructed umbilical hernia; Translations: [Umbilical hernia with obstruction, without gangrene] Onset: 3 Episodic Chronic obstructive pulmonary disease and bronchiectasis (1 source) Chronic obstructive lung disease 10-25-2023 Chronic Coronary atherosclerosis and other heart disease (2 sources) Atherosclerotic heart disease of [place] coronary artery without angina pectoris; Translations: [Coronary atherosclerosis] Onset: 1 10-25-2023 Chronic Disorders of lipid metabolism (1 source) Pure hypercholesterolemia 10-25-2023 Chroni c Disorders of lipid metabolism (1 source) Pure hypercholesterolemia, unspecified; Translations: [PURE HYPERCHOLESTEROLEMIA UNSPEC] Onset: 1 Essential hypertension (2 sources) Essential (primary) hypertension; Translations: [Essential hypertension] Onset: 1 10-25-2023 Chronic External cause codes: Natural/environment (1 source) Overexertion from prolonged static or awkward postures, initial encounter; Translations: [OVEREXERT PROLNG STAT/AWK PST INIT] Onset: 1 Glaucoma (1 source) Glaucoma 10-25-2023 Chronic Intestinal obstruction without hernia (2 sources) Intestinal obstruction; Translations: [Unspecified intestinal obstruction, unspecified as to partial versus complete obstruction] Onset: 3 Episodic Occlusion or stenosis of precerebral arteries (5 sources) Occlusion and stenosis of multiple and bilateral cerebral arteries; Translations: [Occlusion and stenosis of bilateral carotid arteries] Onset: 2 Resolved: 2 Chronic Other aftercare (1 source) [facility] (current) use of aspirin; Translations: [FIELD FOREMAN CURRENT USE OF ASPIRIN] Onset: 1 Episodic Other aftercare (1 source) Other shelter (current) drug therapy; Translations: [OTH FIELD FOREMAN CURRENT DRUG THERAPY] Onset: 1 Episodic Other non-traumatic joint disorders (3 sources) Pain in right knee; Translations: [PAIN IN RIGHT KNEE] Onset: 1 Episodic Sprains and strains (1 source) Sprain of unspecified site of right knee, initial encounter; Translations: [SPRAIN UNS SITE RT KNEE INITIAL] Onset: 1 Episodic Substance-related disorders (2 sources) Smoker; Translations: [Nicotine dependence, unspecified, uncomplicated] Onset: 3 10-25-2023 Chronic Unclassified (1 source) Occlusion and stenosis of bilateral carotid arteries; Translations: [Occlusion and stenosis of bilateral carotid arteries] Onset: 3 Results Test Name Value Interpretation Reference Range Facil catalina Facesheeton 10-31-2023 Facesheet [id number]#1.00T IFF Normal [facility] General Surgery Office/Clini c Noteon 10-30-2023 General Surgery Office/Clinic Note Chief Complaint post operative follow up HPI Staff 7 day post operative follow up post umbilical hernia repair completed while in-patient at [facility]. Reports minimal discomfort. Takes daily Tylenol arthritis. Denies bleeding or drainage. Reports some constipation, taking daily stool softener with effectiveness. Stopped wearing abdominal binder yesterday due to this being uncomfortable. History of Present Illness 1 week s/p primary umbilical herniorrhaphy after episode of incarceration and sbo; hernia was reduced in ED, patient was admitted and had primary repair while an inpatient; doing well, denies pain, no N/V; eating well. some intermittent constipation, taking stools softeners, no pain medications. Review of Systems PHQ Score Initial Depression Screen Score: 0 SCORE ROS - Provider Constitutional: no fever, no sweats, no weight loss. Eyes: no glasses, no blurred vision, no visual loss. ENMT: no dentures, no hoarseness, no swallowing difficulties, no hearing loss, no ear infection(s), no nose bleeds. Cardiovascular: normal blood pressure, no chest pain, regular heartbeat, no heart murmur. Respiratory: no shortness of breath, no cough, no asthma, no wheezing. Gastrointestinal: no nausea, no vomiting, no diarrhea, no constipation, no blood in stool, no change in bowel habits, no abdominal pain, no hepatitis. Genitourinary: no kidney stones, no urine infection, no dysuria. Musculoskeletal: no pain, no weakness. Skin: no changing moles, no rash, no skin lumps. Neurologic: no seizures, no epilepsy, no headache. Psychiatric: no emotional or psychiatric problem. Heme/Lymph: no bleeding problems, no anemia, no blood clots, no transfusions. Allergy/Immunologic: no swollen lymph nodes/glands, no IV drug abuse. Other: Additional ROS info: Except as noted in the above Review of Systems and in the History of Present Illness, all other systems have been reviewed and are negative or noncontributory. Physical Exam abd: soft, normal bs, nontender, nondistended, incisions without erythema or drainage, no ecchymoses. Assessment/Plan 1. Incarcerated umbilical hernia (K42.0: Umbilical hernia with obstruction, without gangrene) doing well, continue no lifting > 10 lbs for 3 weeks; wear abd binder; follow up in 2 weeks, call sooner if problems/questions. 2. Small bowel obstruction (K56.609: Unspecified intestinal obstruction, unspecified as to partial versus complete obstruction) see # 1 Follow-up No qualifying data available Problem List/Past Medical History Ongoing Atherosclerotic heart disease Carotid artery stenosis Chronic obstructive pulmonary disease Essential hypertension Glaucoma Incarcerated umbilical hernia Pure hypercholesterolemia Small bowel obstruction Smoker Historical No qualifying data Procedure/Surgical History Primary repair of umbilical hernia (10/23/2023), Carotid endarterectomy. Medications aspirin 81 mg Chew Tab, 81 mg= 1 tab(s), Chewed, Daily atorvastatin 80 mg Tab, 80 mg= 1 tab(s), Oral, Daily dorzolamide-timolol ophthalmic latanoprost 0.005% ophthalmic emulsion Simbrinza 0.2%-1% ophthalmic suspension verapamil 120 mg ER Tab, 120 mg= 1 tab(s), Oral, Daily Allergies No Known Allergies No Known Medication Allergies Social History Alcohol - Denies Alcohol Use, 10/30/2023 Substance Abuse - Denies Substance Abuse, 10/30/2023 Tobacco 10 or more cigarettes (1/2 pack or more)/day in last 30 days Tobacco Use:. Never Smokeless Tobacco Use:. Cigarettes, 0.5 per day. Started age 15.0 Years., 10/30/2023 Family History Family history is negative Immunizations Vaccine Date Status Comments influenza virus vaccine, inactivated 08/14/2023 Recorded SARS-CoV-2 (COVID-19) [id number] 08/31/2022 Recorded SARSCoV2 mRNA(zpabfcmqx-sosz-uzociz) vac 02/26/2022 Recorded SARS-CoV-2 (COVID-19) mRNA BNT-162b2 vax 08/12/2021 Recorded SARS-CoV-2 (COVID-19) mRNA BNT-162b2 vax 12/30/2020 Recorded 2023-10-25: TPV80 SARS-CoV-2 (COVID-19) mRNA BNT-162b2 vax 12/09/2020 Recorded 2023-10-25: TPV80 Normal [facility] Comment on above: Result Comment: Elec tronically Signed By: GIL PARRA, Rigo Lyman\Date and Time Signed: 10/30/23 16:26 EST Lab Reportson 10-29-2023 Lab Reports [id number] IFF Normal [facility] Consultation Noteon 10-25-20 Consultation Note [id number]#1.00TIFF Normal [facility] Consultation Note [id number]#1.00TIFF Normal [facility] Lab Reportson 10-25-2023 Lab Reports [id number]#1.00T IFF Normal [facility] Lab Reports [id number] IFF Normal [facility] Operative Reporton Operative Report [id number]#1.00TIFF Normal [facility] Consultation Noteon 10-24-20 Consultation Note [id number]#1.00TIFF Normal [facility] Lab Reportson 10-24-2023 Lab Reports [id number]#1.00T IFF Normal [facility] Lab Reports [id number]#1.00T IFF Normal [facility] Consultation Noteon 10-23-20 Consultation Note [id number]#1.00TIFF Normal [facility] US carotid doppler BIon 07-20 US carotid doppler BI [facility] Main [place] [address] [place] [address] Ultrasound Report Signed Patient: Magda Alejo MR#: [id number] 5 : 1940 Acct:[id number] Age/Sex: 83 / M ADM Date: 07/31/23 Loc: [facility] Room: Type: [facility] Attending Dr: Jakub Mejia MD Ordering Provider: Jakub Mejia MD Date of Service: 07/31/23 US/US carotid doppler BI: I65.23 Copies to: Jakub Mejia MD CAROTID DUPLEX INDICATION: known cvod with bilateral reconstruction PROCEDURE: Color-flow duplex scanning is used to interrogate the extracranial carotid arterial system, as well as both vertebral arteries. A right dacron interposition graft is seen. The proximal right internal carotid artery shows a highest peak systolic velocity of 151 cm/s with an end-diastolic velocity of 20.9 cm/s . The mid internal carotid artery measures 223 cm/s peak systolic and 34.5 cm/s end diastolic. The distal segment measures 138 cm/s peak systolic with an end diastolic velocity of 18.7 cm/s . The velocities of the right common carotid artery are 62.9 cm/s peak systolic and 9.83 cm/s end-diastolic proximally and 56.5 cm/s peak systolic and 14.3 cm/s end diastolic distally. The peak systolic velocity ratio of the internal to the common carotid artery is 3.55. The right vertebral artery is patent at 71.5 cm/s with retrograde flow. The proximal left internal carotid artery shows a highest peak systolic velocity of 233 cm/s with an end-diastolic velocity of 24.4 cm/s . The mid internal carotid artery measures 163 cm/s peak systolic and 22.3 cm/s end diastolic. The distal segment measures 161 cm/s peak systolic with an end diastolic velocity of 28.1 cm/s . The velocities of the left common carotid artery are 77 cm/s peak systolic and 8.7 cm/s end-diastolic proximally and 83.2 cm/s peak systolic and 13 cm/s end diastolic distally. The peak systolic velocity ratio of the internal to the common carotid artery is 2.8 . The left external carotid artery measures 127 cm/s peak systolic. The left vertebral artery is patent at 52.8 cm/s with retrograde flow. US/US carotid doppler BI IMPRESSION: Bilateral post surgical changes are seen. Right Dacron graft is patent with around 50% residual or recurrent stenosis. Left carotid shows prior cea with approximately 50-69 % residual or recurrent stenosis. Both vertebrals show retrograde flow Impression dictated by: Jakub Mejia M.D.07/31/2023 12:41 PM Dictation Location: [place] [address] Tech: Bridgett Lawrence Transcribed By: NEHEMIAH 07/31/23 1241 Dictated By: Jakub Mejia MD 07/31/23 1236 Signed By: 07/31/23 1241 [facility] COMPREHENSIVE METABOLIC PANE Juan 06-06-2022 Albumin [Mass/Vol] 4.4 g/dL Normal 3.6-5.1 [facility] Comment on above: Performed By: #### 1 0231, 2410 #### [facility] [address] [address] Breaker Tender: Dominic Turner MD Albumin/Globulin [Mass ratio] 1.6 {ratio} Normal 1.0-2 .5 [facility] Comment on above: Performed By: #### 1 0231, 7600 #### [facility] [address] [address] Breaker Tender: Dominic Turner MD ALP [Catalytic activity/Vol] 80 U/L Normal 35-144 [facility] Comment on above: Performed By: #### 1 0231, 9760 #### [facility] [place] [id number] Breaker Tender: Dominic Turner MD ALT [Catalytic activity/Vol] 14 U/L Normal 9-46 [facility] Comment on above: Performed By: #### 1 0231, 7600 #### [facility] of [place] [address] Breaker Tender: Dominic Turner MD AST [Catalytic activity/Vol] 17 U/L Normal 10-35 [facility] Comment on above: Performed By: #### 1 0231, 7600 #### [facility] of [place] [address] Breaker Tender: Dominic Turner MD Bilirubin [Mass/Vol] 0.5 mg/dL Normal 0.2-1.2 [facility] Comment on above: Performed By: #### 1 023, 7600 #### [facility] of [place] [address] Breaker Tender: Dominic Turner MD BUN/CREATININE RATIO NOT APPLICABLE Normal 6-22 [facility] Comment on above: Performed By: #### 1 023, 7600 #### [facility] of [place] [address] Breaker Tender: Dominic Turner MD Calcium [Mass/Vol] 9.5 mg/dL Normal 8.6-10.3 [facility] Comment on above: Performed By: #### 1 023, 7600 #### [facility] of [place] [address] Breaker Tender: Dominic Turner MD Chloride [Moles/Vol] 99 mmol/L Normal 98-110 [facility] Comment on above: Performed By: #### 1 0231, 7600 #### [facility] of [place] [address] Breaker Tender: Dominic Turner MD CO2 [Moles/Vol] 30 mmol/L Normal 20-32 [facility] Comment on above: Performed By: #### 1 0231, 7600 #### [facility] of [place] [address], [address] [place] [address] Breaker Tender: Dominic Turner MD Creatinine [Mass/Vol] 0.77 mg/dL Normal 0.70-1.[address] [facility] Comment on above: Performed By: #### 1 0231, 7600 #### [facility] [address], [address] [place] [address] Breaker Tender: Dominic Turner MD GFR/1.73 sq M.predicted olivia g non-blacks MDRD (S/P/Bld) [Vol rate/Area] 88 mL/min/{1.73_m2} Normal > OR = 60 [facility] Comment on above: Result Comment: The eGFR is based on the CKD-EPI 2020 equation. To calculate the new eGFR from a previous Creatinine or Cystatin C result, go to https://www.kidney.org/professionals/ kdoqi/gfr%5Fcalculator Performed By: #### 1 023, 7600 #### [facility] [address], [address] [place] [address] Breaker Tender: Dominic Turner MD Globulin (S) [Mass/Vol] 2.8 g/dL Normal 1.9-3.7 [facility] Comment on above: Performed By: #### 1 0231, 7600 #### [facility] [address], [address] [place] [address] Breaker Tender: Dominic Turner MD Glucose [Mass/Vol] 93 mg/dL Normal 65-99 [facility] Comment on above: Result Comment: Fasting reference interval Performed By: #### 1 0231, 7600 #### [facility] [address], [address] [place] [address] Breaker Tender: Dominic Turner MD Potassium [Moles/Vol] 4.4 mmol/L Normal 3.5-5.[address] [facility] Comment on above: Performed By: #### 1 0231, 7600 #### [facility] [address], [address] [place] [address] Breaker Tender: Dominic Turner MD Protein [Mass/Vol] 7.2 g/dL Normal 6.1-8.1 [facility] Comment on above: Performed By: #### 1 0231, 7600 #### [facility] [place] [address] Breaker Tender: Dominic Turner MD Sodium [Moles/Vol] 134 mmol/L Low 135-146 [facility] Comment on above: Performed By: #### 1 0231, 7600 #### [facility] [place] [address] Breaker Tender: Dominic Turner MD Urea nitrogen [Mass/Vol] 11 mg/dL Normal 7-25 [facility] Comment on above: Performed By: #### 1 0231, 7600 #### [facility] [place] [address] Breaker Tender: Dominic Tunrer MD LIPID PANEL, [address] Cholesterol [Mass/Vol] 114 mg/dL Normal <200 [facility] Comment on above: Order Comment: FASTI NG:YES FASTING: YES Performed By: #### 1 0231, 7600 #### [facility] [place] [address] Breaker Tender: Dominic Turner MD Cholesterol in HDL [Mass/Vol] 38 mg/dL Low > OR = 40 [facility] Comment on above: Order Comment: FASTI NG:YES FASTING: YES Performed By: #### 1 023, 7600 #### [facility] [place] [address] Breaker Tender: Dominic Turner MD Cholesterol in LDL [Mass/Vol] 62 mg/dL Normal [facility] Comment on above: Order Comment: FASTI NG:YES FASTING: YES Result Comment: Refe rence range: <100 Desirable range <100 mg/dL for primary prevention; <70 mg/dL for patients with CHD or diabetic patients with > or = 2 CHD risk factors. LDL-C is now calculated using the Conrad-Lo calculation, which is a validated novel method providing better accuracy than the Friedewald equation in the estimation of LDL-C. Conrad SS et al. JAYLIN. 2013;310(19): 0170-7748 (http://education.Meaningfy.Stadion Money Management/faq/AVV278) Performed By: #### 1 0231, 7600 #### [facility] [address], [address] [place] [address] Breaker Tender: Dominic Turner MD Cholesterol.total/Cholestero l in HDL [Mass ratio] 3.0 {ratio} Normal <5.0 [facility] Comment on above: Order Comment: FASTI NG:YES FASTING: YES Performed By: #### 1 0231, 7600 #### [facility] [address], [address] [place] [address] Breaker Tender: Dominic Turner MD NON HDL CHOLESTEROL 76 mg/dL (calc) Normal <130 [facility] Comment on above: Order Comment: FASTI NG:YES FASTING: YES Result Comment: For patients with diabetes plus 1 major ASCVD risk factor, treating to a non-HDL-C goal of <100 mg/dL (LDL-C of <70 mg/dL) is considered a therapeutic option. Performed By: #### 1 0231, 7600 #### [facility] [address], [address] [place] [address] Breaker Tender: Dominic Turner MD Triglyceride [Mass/Vol] 62 mg/dL Normal <150 [facility] Comment on above: Order Comment: FASTI NG:YES FASTING: YES Performed By: #### 1 0231, 7600 #### [facility] [address], [address] [place] [address] Breaker Tender: Dominic Turner MD COMPREHENSIVE METABOLIC PANE [facility] 11-05-2021 Albumin [Mass/Vol] 4.5 g/dL Normal 3.6-5.1 [facility] Comment on above: Performed By: #### 7 092, 22785 #### [facility] [address], [address] [place] [address] Breaker Tender: Dominic Turner MD Albumin/Globulin [Mass ratio] 1.7 {ratio} Normal 1.0-2 .5 [facility] Comment on above: Performed By: #### 7 600, 97094 #### [facility] of [address], [address] [place] [address] Breaker Tender: Dominic Turner MD ALP [Catalytic activity/Vol] 75 U/L Normal 35-144 [facility] Comment on above: Performed By: #### 7 600, [address] #### [facility] of [address], [address] [place] [address] Breaker Tender: Dominic Turner MD ALT [Catalytic activity/Vol] 16 U/L Normal 9-46 [facility] Comment on above: Performed By: #### 7 600, 70567 #### [facility] of [place] [address] Breaker Tender: Dominic Turner MD AST [Catalytic activity/Vol] 17 U/L Normal 10-35 [facility] Comment on above: Performed By: #### 7 600, 901[address] #### [facility] of [address], [address] [place] [address] Breaker Tender: Dominic Turner MD Bilirubin [Mass/Vol] 0.7 mg/dL Normal 0.2-1.2 [facility] Comment on above: Performed By: #### 7 600, 36[address] #### [facility] of [address], [address] [place] [address] Breaker Tender: Dominic Turner MD BUN/CREATININE RATIO NOT APPLICABLE Normal 6-22 [facility] Diagnostics Comment on above: Performed By: #### 7 600, [id number] #### [facility] [place] [address] Breaker Tender: Dominic Turner MD Calcium [Mass/Vol] 9.6 mg/dL Normal 8.6-10.3 [facility] Comment on above: Performed By: #### 7 600, [id number] #### [facility] of [address], [address] [place] [address] Breaker Tender: Dominic Turner MD Chloride [Moles/Vol] 99 mmol/L Normal 98-110 Ques t Diagnostics Comment on above: Performed By: #### 7 600, 48855 #### [facility] [place] [address] Breaker Tender: Dominic Turner MD CO2 [Moles/Vol] 31 mmol/L Normal 20-32 [facility] Comment on above: Performed By: #### 7 600, 04863 #### [facility] [place] [address] Breaker Tender: Dominic Turner MD Creatinine [Mass/Vol] 0.73 mg/dL Normal 0.70-1.[address] [facility] Comment on above: Result Comment: For patients >49 years of age, the reference limit for Creatinine is approximately 13% higher for people identified as -[place]. Performed By: #### 7 600, [id number] #### [facility] [address], [address] [place] [address] Breaker Tender: Dominic Turner MD eGFR NON-AFR. CITIZEN OF [place] 86 mL/min/1.73m2 Normal > OR = 60 [facility] Comment on above: Performed By: #### 7 600, 34035 #### [facility] [place] [address] Breaker Tender: Dominic Turner MD GFR/1.73 sq M.predicted olivia g blacks MDRD (S/P/Bld) [Vol rate/Area] 99 mL/min/{1.73_m2} Normal > OR = 60 [facility] Comment on above: Performed By: #### 7 600, 97295 #### [facility] [place] [address] Breaker Tender: Dominic Turner MD Globulin (S) [Mass/Vol] 2.6 g/dL Normal 1.9-3.7 Q uest [facility] Comment on above: Performed By: #### 7 600, 11099 #### [facility] [address] [place] [address] Breaker Tender: Dominic Turner MD Glucose [Mass/Vol] 86 mg/dL Normal 65-99 [facility] Comment on above: Result Comment: Fasting reference interval Performed By: #### 7 600, 15491 #### [facility] [address], [address] [place] [address] Breaker Tender: Dominic Turner MD Potassium [Moles/Vol] 4.4 mmol/L Normal 3.5-5.3 [facility] st Diagn[facility] Comment on above: Performed By: #### 7 600, 29930 #### [facility] [place] [address] Breaker Tender: Dominic Turner MD Protein [Mass/Vol] 7.1 g/dL Normal 6.1-8.1 [facility] Comment on above: Performed By: #### 7 600, 41384 #### [facility] [address], [address] [place] [address] Breaker Tender: Dominic Turner MD Sodium [Moles/Vol] 135 mmol/L Normal 135-146 [facility] Comment on above: Performed By: #### 7 600, 57309 #### [facility] [place] [address] Breaker Tender: Dominic Turner MD Urea nitrogen [Mass/Vol] 10 mg/dL Normal 7-25 [facility] Comment on above: Performed By: #### 7 600, 58905 #### [facility] [place] [address] Breaker Tender: Dominic Turner MD LIPID PANEL, [facility] 10-19 Cholesterol [Mass/Vol] 145 mg/dL Normal <200 Qu est [facility] Comment on above: Order Comment: FASTI NG:YES FASTING: YES Performed By: #### 7 600, 34718 #### [facility] [address], [address] [place] [address] Breaker Tender: Dominic Turner MD Cholesterol in HDL [Mass/Vol] 45 mg/dL Normal > OR = 40 [facility] Comment on above: Order Comment: FASTI NG:YES FASTING: YES Performed By: #### 7 600, 80759 #### [facility] [address], [address] [place] [address] Breaker Tender: Dominic Turner MD Cholesterol in LDL [Mass/Vol] 83 mg/dL Normal [facility] Comment on above: Order Comment: FASTI NG:YES FASTING: YES Result Comment: Refe rence range: <100 Desirable range <100 mg/dL for primary prevention; <70 mg/dL for patients with CHD or diabetic patients with > or = 2 CHD risk factors. LDL-C is now calculated using the Cinthia calculation, which is a validated novel method providing better accuracy than the Friedewald equation in the estimation of LDL-C. Conrad PAZ et al. JAYLIN. 2013;310(19): 1677-6264 (http://education.Meaningfy.Stadion Money Management/faq/NLS150) Performed By: #### 7 600, 30647 #### [facility] [address], [address] [place] [address] Breaker Tender: Dominic Turner MD Cholesterol.total/Cholestero l in HDL [Mass ratio] 3.2 {ratio} Normal <5.0 [facility] Comment on above: Order Comment: FASTI NG:YES FASTING: YES Performed By: #### 7 600, 04267 #### [facility] [address], [address] [place] [address] Breaker Tender: Dominic Turner MD NON HDL CHOLESTEROL 100 mg/dL (calc) Normal <130 [facility] Comment on above: Order Comment: FASTI NG:YES FASTING: YES Result Comment: For patients with diabetes plus 1 major ASCVD risk factor, treating to a non-HDL-C goal of <100 mg/dL (LDL-C of <70 mg/dL) is considered a therapeutic option. Performed By: #### 7 600, 19302 #### [facility] [address], [address] [place] [address] Breaker Tender: Dominic Turner MD Triglyceride [Mass/Vol] 79 mg/dL Normal <150 [facility] Comment on above: Order Comment: FASTI NG:YES FASTING: YES Performed By: #### 7 543, 98613 #### [facility] [place] [address] [facility], [address] [place] [address] Breaker Tender: Dominic Turner MD XR KNEE RT 4V or >on 021 XR KNEE RT 4V or > PROCEDURE: XR KNEE R T 4V or > HISTORY: Traumatic injury ; knee pain since twisting injury 3 weeks ago COMPARISON: None. FINDINGS: BONES:No fracture, acute abnormality, or significant arthropathy. SOFT TISSUES:Marked atherosclerotic disease. No visible soft tissue swelling. EFFUSION:None visible. OTHER: Negative. IMPRESSION: 1. No acute bone abnormality or significant degenerative joint disease. Electronically authenticated by: SARAHI NOYOLA Date: 2021-01-10 09:57 Normal [facility] Vital Signs Date Time Vital Sign Value Performing Clinician Facility 07-31-2022 10:15-0400 Body height 179.71 cm Jakub Mejia Other [facility] Other 07-31-2022 10:15-0400 Body mass index (BMI) [Ratio] 25.84 kg/m2 Jakub Mejia Other [facility] Other 07-31-2022 10:15-0400 Body temperature 97.2 [degF] Jakub Mejia Other [facility] Other 07-31-2022 10:15-0400 Body weight 83.46 kg Jakub Mejia Other [facility] Other 07-31-2022 10:15-0400 Diastolic blood pressure 72 mm[Hg] Jakub Mejia Other [facility] Other 07-31-2022 10:15-0400 SaO2% (BldA) [Mass fraction] 98 % Jakub Mejia Other [facility] Other 07-31-2022 10:15-0400 Systolic blood pressure 110 mm[Hg] Jakub Mejia Other [facility] Other Encounters Encounter Date Encounter Type Care Provider Facility Start: 10-30-2023 End: 10-31-2023 ambulatory Rigo R NILL Facility:[facility] Start: 10-30-2023 End: 10-30-2023 Patient encounter procedure Rigo R NILL General Surgery [facility] [place] Start: 10-26-2023 ambulatory Rigo NILL Facility:[facility] Start: 10-22-2023 ambulatory Rigo NILL Facility:[facility] Start: 10-21-2023 End: 10-24-2023 ambulatory Rigo R NILL Facility:CD:[id number] Start: 07-31-2023 End: 07-31-2023 ambulatory Jakub Mejia Facility:[facility] Start: 07-31-2023 End: 07-31-2023 ambulatory DO Ben Furlong Work Phone: [facility] Work Phone: Start: 07-31-2023 End: 07-31-2023 Patient encounter procedure DO Ben Furlong Work Phone: [facility]-Ultrasound [facility] Start: 07-31-2022 End: 07-31-2022 ambulatory Jakub Mejia Other [facility] Other Start: 07-31-2022 Office outpatient vi sit 25 minutes Jakub Mejia [facility] V[facility] Surgery Start: 07-10-2022 End: 07-10-2022 Patient encounter procedure DO Ben Furlong Work Phone: [facility]-Ultrasound [facility] [place] Start: 01-10-2021 End: 01-10-2021 Patient encounter procedure BEN CHAIDEZ Facility:[facility] Procedures Date Procedure Procedure Detail Performing Clinician Start: 10-23-2023 Primary repair of um bilical hernia Rigo FERRARIAbi Start: 07-31-2023 Doppler ultrasonogra phy of bilateral carotid arteries DO Ben Chaidez Work Phone: Start: 07-10-2022 Doppler ultrasonogra phy of bilateral carotid arteries DO Ben Chaidez Work Phone: Carotid endarterectomy Josue CORDERO Plan of Treatment Date Care Activity Detail Author Start: 11-13-2023 ambulatory Ambulatory Facility:[facility] Immunizations Immunization Date Immunization Notes Care Provider Fa [facility] 08-14-2023 influenza virus vaccine, unspecified formulation Rigo FERRARIAbi [facility] 08-31-2022 SARS-CoV-2 (COVID-19 ) [id number] Rigo FERRARIAbi [facility] 02-26-2022 SARS-CoV-2 mRNA ([id number] se) vaccine Rigo FERRARIAbi [facility] 08-12-2021 SARS-CoV-2 (COVID-19 ) mRNA BNT-162b2 vax Rigo FERRARIAbi [facility] 12-30-2020 SARS-CoV-2 (COVID-19 ) mRNA BNT-162b2 vax Rigo FERRARIL [facility] Comment on above: Result Comment: 2022: [id number] 12-09-2020 SARS-CoV-2 (COVID-19 ) mRNA BNT-162b2 vax Rigo FERRARIL [facility] Comment on above: Result Comment: 2022: [id number] Payers Date Payer Category Payer Self-pay [id number] 1961 Unknown [id number] 1940 Unknown [id number] 1940 Unknown [id number] 1940 Unknown [id number] 1940 Unknown [id number] Medicare Medicare [id number] Private Health Insurance [employer] [facility] [id number] Unknown HCAP/HFA/FAP Active [id number] Unknown [id number] Social History Date Type Detail Facility Start: 08-16-2017 [facility] Start: 1940 Sex Assigned At Male F [facility] Sex Assigned At [facility] Start: 10-30-2023 Tobacco smoking status Heavy t obacco smoker (finding) [facility] Tobacco smoking status Never [facility] Medical Equipment Procedure Code Equipment Code Equipment Origin al Text Equipment Identifier Dates Endarterectomy, carotid GRAFT HEMASHIELD [id number] FDA Start: 08-16-2017 Endarterectomy, carotid GRAFT HEMASHIELD [id number] FDA Start: 08-16-2017 Functional Status Date Assessment Result Facility 10-30-2023 Functional Status N/A [facility] Evaluation note 07-31-2022 Note Date & Type Note Facility 07-31-2022 Evaluation note Encounter Date Diagnosis Assessment Notes Jul, Carotid stenosis, bilateral (ICD-10 - I65.23) Jul, Other [Carotid occlusive disease This patient is stable at this time having had longstanding moderate stenosis of both internal carotid arteries. For now we will follow him as he is asymptomatic and 82 years old. He remains on aspirin and atorvastatin. He will return every 12 months for repeat duplex. He knows to come sooner should he develop any new symptoms. [facility] Other History general Narrative - Reported 05-04-1994 Note Date & Type Note Facility 05-04-1994 History general N arrative - Reported Type Medical History TIA Rt side Medical History CAROTID STENOSIS Surgical History Rt Carotid Arteriogram 05/04/19 94 Surgical History Left carotid Arteriogram 2000 Surgical History Bilat carotid artery angiography/Right ICA PTLA and stenting 04/14/2016 Surgical History Rt Carotid resect w/ bypass gra ft 08/16/17 [facility] Other Evaluation + Plan note Note Date & Type Note Facility Evaluation + Plan note Future Appointments Appointment Date:11/13/2023 01:00:00 PM Scheduled Provider:Rigo CORDERO MD Location:[facility] Appointment Type: Post Op 15 [facility] Evaluation note Note Date & Type Note Facility Evaluation note No assessment information availa [facility] Work Phone: Hospital course Narrative Note Date & Type Note Facility Hospital course Narrative No data available for this section [facility] Hospital Discharge instructions Note Date & Type Note Facility Hospital Discharge instructions No data available for this section General Surgery [place] Progress note Note Date & Type Note Facility Progress note No data available for this section [facility] Summary Purpose Family History No Family History Records FoundNo Family History Records FoundNo Family History Records Found No data available for this section No Family History Records Found Advance Directives No Advanced Directives Records Found Advance Directive Response Recorded Date/ Time Advance Directives No July 8:12am Chief Complaint and Reason for Visit Chief Complaint i65.23 Chief Complaint I65.23 Additional Source Comments (unrecognized sect ion and content) No Status Records FoundNo Status Records FoundNo Status Records FoundNo Status Records Found INFORMATION SOURCE (unrecogn ized section and content) DATE CREATED AUTHOR 01/16/2021 [facility] DATE CREATED AUTHOR AUTHOR'S ORGANIZ ATION 06/09/2022 [facility] DATE CREATED AUTHOR AUTHOR'S ORGANIZ ATION 08/08/2023 [facility] DATE CREATED AUTHOR AUTHOR'S ORGANIZ ATION 11/06/2023 [facility] Care Teams (unrecognized sec tion and content) Team Status: Inactive Member Role Status Dates Ben Chaidez , Primary Care Provider, Attending Kena baxter Active Team Status: Active Member Role Status Dates Ben Chaidez , Primary Care Provider Active Team Status: Inactive Member Role Status Dates Ben Chaidez , Primary Care Provider Active Jakub Mejia MD Attending Provider Active Goals (unrecognized section and content) Goals may be documented in a n alternate sectionNo InformationGoals may be documented in an alternate section No data available for this section REASON FOR VISIT (unrecogniz ed section and content) URGENT REFERALL FOR INCREASE D CAROTID STENOSIS; CAROTID 07[place]10 [place] [facility] [place] ultrasound FOR RECORDS PERTAINING TO PATIENTS WHO ARE OR HAVE BEEN ENROLLED IN A CHEMICAL DEPENDENCY/SUBSTANCEABUSE PROGRAM, SOME INFORMATION MAY BE OMITTED. This clinical summary was aggregated from multiple sources. Caution should be exercised in using it in the provision of clinical care. This summary normalizes information from multiple sources, and as a consequence, information in this document may materially change the coding, format and clinical context of patient data. In addition, data may be omitted in some cases. CLINICAL DECISIONS SHOULD BE BASED ON THE PRIMARY CLINICAL RECORDS. [employer] [facility]. provides no warranty or guarantee of the accuracy or completeness of information in this document.
== END 2023-10-24 10:35 | disposition home or self-care (01) | DRG 354 ==
LOC: ER 19:01 → MS 23:46
PROVIDERS: Internal Medicine; Surgery; Admitting Provider Internal Medicine; Emergency Provider Emergency Medicine; PCP Family Medicine; Visit Provider Nurse Practitioner
PROC: 0WQF0ZZ Repair Abdominal Wall, Open Approach (ICD-10-PCS; principal; 2023-10-23 11:00)
DX: K42.0 Umbilical hernia with obstruction, without gangrene (principal); J44.1 Chronic obstructive pulmonary disease with (acute) exacerbation; I10 Essential (primary) hypertension; E78.5 Hyperlipidemia, unspecified; I73.9 Peripheral vascular disease, unspecified; I77.9 Disorder of arteries and arterioles, unspecified; H40.9 Unspecified glaucoma; F17.210 Nicotine dependence, cigarettes, uncomplicated; R11.2 Nausea with vomiting, unspecified; Z79.899 Other long term (current) drug therapy; Z79.82 Long term (current) use of aspirin; Z82.3 Family history of stroke
CPT/HCPCS: 36415; 64488; 71045; 71275; 74176; 80048; 80053; 80320; 81001; 83605; 83735; 84484; 85025; 85378; 85610; 87040; 88302; 93005; 93306; 94640; 94761; 96361; 96365; 96366; 96367; 96368; 96372; 96374; 96375; 96376; 99285; G0378; J0456; J2704; J2920; J3480; Q3014; Q9967